=== PATIENT | female | born 1960 | race Two or more races ===

== ENCOUNTER 2016-09-16 10:37 | Inpatient (IN) | payer MEDICARE, MEDICAID ==
[~2016-09-16] VITALS: Ht 154.9 cm; Wt 107.2 kg
[2016-09-16] MEDS ORDERED: DILA100C PO (10:56)
[2016-09-16] MEDS ORDERED: TRAZ1TAB14 PO (10:56)
[2016-09-16] MEDS ORDERED: AMLO5TAB2 PO (10:56)
[2016-09-16] MEDS ORDERED: CLON0.2T PO (10:56)
[2016-09-16] MEDS ORDERED: PHEN30CA PO (10:56)
[2016-09-16] MEDS ORDERED: OMEP40CA2 PO (10:56)
[2016-09-16] MEDS ORDERED: LISI40TAB PO (10:56)
[2016-09-16] MEDS ORDERED: MORPHINE 4 MG/ML 1ML SYRINGE IV ONE ×2 (11:30→13:30)
[2016-09-16] MEDS ORDERED: VANCOMYCIN HCL 1,000 MG, VIAL MATE ADAPTER 1 EACH in D5W 250 ML IV ONE (11:30)
[2016-09-16] MEDS ORDERED: ONDANSETRON 4MG/2ML VIAL (J2405) IV ONE (11:30)
[2016-09-16] MEDS ORDERED: MELO15TA4 PO (11:43)
[2016-09-16] MEDS ORDERED: LYRI150C PO (11:43)
[2016-09-16] MEDS ORDERED: FLUTISP (11:43)
[2016-09-16] MEDS ORDERED: LEVO25TA5 PO (11:43)
[2016-09-16] MEDS ORDERED: VENL75TA2 PO (11:43)
[2016-09-16] MEDS ORDERED: CARV25TA PO (11:43)
[2016-09-16] MEDS ORDERED: CILO100T PO (11:43)
[2016-09-16 11:44] LABS: BASO % 0.1 % (0.0-1.0); EOS # 0.1 K/mm3 (0.0-0.50); EOS % 1.1 % (0.0-3.0); LARGE UNSTAINED CELL # 0.1 K/mm3 (0.0-0.4); LARGE UNSTAINED CELL % 0.8 % (0.0-4.0); LYMPH % 11.6 % (24.0-44.0); MEAN CORPUSCULAR HGB CONC 34.1 g/dl (32.0-36.5); MEAN CORPUSCULAR VOLUME 90.8 fl (80.0-96.0); MONO # 0.3 K/mm3 (0.0-0.8); NEUTROPHILS # 6.9 K/mm3 (1.8-7.7); NEUTROPHILS % 83.4 % (36.0-66.0); PLATELET COUNT, AUTOMATED 293 k/mm3 (150-450); RED CELL DISTRIBUTION WIDTH 14.8 % (11.5-14.5); WHITE BLOOD COUNT 8.3 K/mm3 (4.0-10.0)
[2016-09-16 11:59] LABS: ALBUMIN 3.3 GM/DL (3.2-5.2); ALBUMIN/GLOBULIN RATIO 0.92 (1.00-1.93); ALKALINE PHOSPHATASE 136 U/L (45-117); ALT/SGPT 23 U/L (12-78); ANION GAP 8 MEQ/L (8-16); AST/SGOT 9 U/L (15-37); BILIRUBIN,TOTAL 0.3 MG/DL (0.2-1.0); BLOOD UREA NITROGEN 19 MG/DL (7-18); CALCIUM LEVEL 9.1 MG/DL (8.5-10.1); CARBON DIOXIDE LEVEL 25 MEQ/L (21-32); CHLORIDE LEVEL 104 MEQ/L (98-107); CREATININE FOR GFR 0.72 MG/DL (0.55-1.02); GLOMERULAR FILTRATION RATE > 60.0 (>51); GLUCOSE, FASTING 167 MG/DL (70-105); POTASSIUM SERUM 3.4 MEQ/L (3.5-5.1); SODIUM LEVEL 137 MEQ/L (136-145); TOTAL PROTEIN 6.9 GM/DL (6.4-8.2)
[2016-09-16] MEDS ORDERED: diphenhydrAMINE INJ 50MG/ML VIAL (J1200) IV STA ×2 (12:02→13:08)
[2016-09-16] MEDS ORDERED: ISOVUE-370 76% 100ML VIAL (Q9967) As Ordered ONE (12:05)
[2016-09-16] MEDS ORDERED: FAMOTIDINE INJ 20MG/2ML VIAL (S0028) IVP ONE (12:15)
[2016-09-16 12:29] LABS: ERYTHROCYTE SEDIMENTATION RATE 30 mm/hr (0-30)
[2016-09-16] MEDS ORDERED: LEVO50TA45 PO (13:48)
[2016-09-16] MEDS ORDERED: EFFE75CA75 PO (13:48)
[2016-09-16] MEDS ORDERED: PROAAER10 INH (13:48)
[2016-09-16] MEDS: IPRATROPIUM 0.5MG/ALBUTEROL 2.5MG INH SOL UD 3ML (DUONEB)(J7620) NEB SCH ×2 (14:00→19:43)
--- NOTE | 2016-09-16 14:14 | REP ---
CT study of abdomen and pelvis with IV but without oral contrast: History: Panniculitis. Technique: A BB marker is placed is at the skin above the level of interest. CT contrast dose: 100 mL of Isovue 370 is administered. 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 There are median sternotomy wires. Axial CT images show that the lung bases are clear. The liver and the spleen are normal in size and homogeneous in texture. The gallbladder is unremarkable. No pancreatic abnormality is seen. No adrenal lesion is observed on either side. The kidneys enhance symmetrically are morphologically intact. Small and large intestinal bowel loops are normal in the upper abdomen. Pelvic CT images demonstrate a large area of skin thickening and subcutaneous edema in the abdominal panniculus beginning at and extending below the level of the opaque BB skin marker consistent with panniculitis/cellulitis. No abscess or mass is seen. No abdominal wall hernia is seen. Pelvic CT images show normal large and small bowel loops. There is a fundal uterine leiomyoma measuring approximately 3.1 cm. No ovarian abnormality is seen. No free fluid is noted. No abdominal wall defect is seen. No bony destructive lesion is observed. There are fairly advanced facet osteoarthritic changes in the lower lumbar spine. Impression: 1. Cellulitis picture in the abdominal panniculus consistent with panniculitis. No abscess seen. 2. 3.1 cm uterine leiomyoma. 3. No other significant abnormality. Signed by Tutu Corral MD 09/16/2016 04:33 P
[2016-09-16] MEDS ORDERED: MORPHINE 2 MG/ML 1ML SYRINGE IV PRN (14:45)
[2016-09-16] MEDS ORDERED: BISACODYL 5 MG TAB PO PRN (14:45)
[2016-09-16] MEDS ORDERED: ACETAMINOPHEN TAB 650MG DOSE (2X325MG) PO PRN (14:45)
[2016-09-16] MEDS ORDERED: ONDANSETRON 4MG/2ML VIAL (J2405) IV PRN (14:45)
[2016-09-16] MEDS ORDERED: IPRATROPIUM 0.5MG/ALBUTEROL 2.5MG INH SOL UD 3ML (DUONEB)(J7620) NEB PRN (15:00)
[2016-09-16] MEDS ORDERED: ALBUTEROL 90 MCG/ACT 8GM HFA INHALER INH PRN (15:00)
--- NOTE | 2016-09-16 15:14 | REP ---
PA and lateral chest: There are no comparisons. The lung colindres are clear. Cardiac size is borderline enlarged. There are sternotomy wires and mediastinal surgical clips. The jaqueline, mediastinum, and bony thorax are unremarkable. Impression: There are postsurgical changes. There are no acute cardiopulmonary findings. Signed by Torito Kahn MD 09/16/2016 03:05 P
[2016-09-16] MEDS: ENOXAPARIN 40 MG/0.4 ML SYRINGE (J1650) SC SCH (15:24)
[2016-09-16] MEDS: CEFTAROLINE FOSAMIL 600 MG in D5W MINI-BAG PLUS 50 ML IV SCH (15:24)
[2016-09-16] MEDS: PERCOCET 5MG/325MG TAB PO PRN ×2 (15:26→19:38)
[2016-09-16 15:30] LABS: CHOLESTEROL LEVEL 220 MG/DL (<200); TRIGLYCERIDES LEVEL 176 MG/DL (<150)
[2016-09-16] MEDS ORDERED: POTASSIUM CHLORIDE 10 MEQ SR TABLET PO ONE (16:00)
[2016-09-16] MEDS: diphenhydrAMINE INJ 50MG/ML VIAL (J1200) IV PRN (16:02)
[2016-09-16 17:15] VITALS: BP 150/90
[2016-09-16] MEDS: CILOSTAZOL 100 MG TAB (PLETAL) PO SCH (18:23)
[2016-09-16] MEDS: traZODone 50 MG TAB PO SCH (20:58)
[2016-09-16] MEDS: PHENYTOIN ER 30 MG CAP PO SCH (20:58)
[2016-09-16] MEDS: NYSTATIN 100,000 UNITS/GM TOPICAL PWD 15 GM TOP SCH (20:58)
[2016-09-16] MEDS: PHENYTOIN ER 100 MG CAP PO SCH (20:58)
[2016-09-16] MEDS: cloNIDine 0.2 MG TAB PO SCH (20:59)
[2016-09-16] MEDS: OMEPRAZOLE 20 MG CAP PO SCH (21:00)
[2016-09-16] MEDS: CARVedilol 12.5 MG TAB PO SCH (21:00)
[2016-09-16] MEDS: PREGABALIN 75 MG CAP(LYRICA) PO SCH (21:00)
[2016-09-16 22:00] VITALS: BP 158/80
--- NOTE | 2016-09-16 22:43 | ECGEPIP ---
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
[2016-09-17] MEDS: IPRATROPIUM 0.5MG/ALBUTEROL 2.5MG INH SOL UD 3ML (DUONEB)(J7620) NEB SCH ×4 (01:57→19:32)
[2016-09-17] MEDS: CEFTAROLINE FOSAMIL 600 MG in D5W MINI-BAG PLUS 50 ML IV SCH ×2 (04:04→16:49)
[2016-09-17] MEDS: PERCOCET 5MG/325MG TAB PO PRN ×4 (04:19→20:49)
[2016-09-17] MEDS: LEVOTHYROXINE 50MCG TABLET (0.05MG) PO SCH (05:40)
[2016-09-17 06:00] VITALS: BP_SYST 140; BP_SYST 158; BP_DIAS 86
[2016-09-17 06:42] LABS: BASO % 0.2 % (0.0-1.0); EOS # 0.1 K/mm3 (0.0-0.50); EOS % 2.9 % (0.0-3.0); LYMPH # 0.9 K/mm3 (1.5-4.5); LYMPH % 22.4 % (24.0-44.0); MEAN CORPUSCULAR HEMOGLOBIN 30.6 pg (27.0-33.0); MEAN CORPUSCULAR HGB CONC 33.3 g/dl (32.0-36.5); MONO # 0.2 K/mm3 (0.0-0.8); MONO % 4.6 % (0.0-5.0); NEUTROPHILS # 2.7 K/mm3 (1.8-7.7); NEUTROPHILS % 68.9 % (36.0-66.0); PLATELET COUNT, AUTOMATED 246 k/mm3 (150-450); RED CELL DISTRIBUTION WIDTH 14.9 % (11.5-14.5); WHITE BLOOD COUNT 3.9 K/mm3 (4.0-10.0)
[2016-09-17 07:03] LABS: ALBUMIN 2.8 GM/DL (3.2-5.2); ALBUMIN/GLOBULIN RATIO 0.82 (1.00-1.93); ALKALINE PHOSPHATASE 122 U/L (45-117); ALT/SGPT 21 U/L (12-78); ANION GAP 5 MEQ/L (8-16); AST/SGOT 8 U/L (15-37); BILIRUBIN,TOTAL 0.1 MG/DL (0.2-1.0); BLOOD UREA NITROGEN 16 MG/DL (7-18); CARBON DIOXIDE LEVEL 32 MEQ/L (21-32); CHLORIDE LEVEL 107 MEQ/L (98-107); CREATININE FOR GFR 0.64 MG/DL (0.55-1.02); GLOMERULAR FILTRATION RATE > 60.0 (>51); GLUCOSE, FASTING 150 MG/DL (70-105); MAGNESIUM LEVEL 1.8 MG/DL (1.8-2.4); POTASSIUM SERUM 4.5 MEQ/L (3.5-5.1); SODIUM LEVEL 144 MEQ/L (136-145); TOTAL PROTEIN 6.2 GM/DL (6.4-8.2)
[2016-09-17] MEDS: CILOSTAZOL 100 MG TAB (PLETAL) PO SCH ×2 (08:04→16:50)
[2016-09-17] MEDS: PREGABALIN 75 MG CAP(LYRICA) PO SCH ×2 (09:47→20:47)
[2016-09-17] MEDS: cloNIDine 0.2 MG TAB PO SCH ×2 (09:47→20:47)
[2016-09-17] MEDS: OMEPRAZOLE 20 MG CAP PO SCH ×2 (09:47→20:46)
[2016-09-17] MEDS: CARVedilol 12.5 MG TAB PO SCH ×2 (09:47→20:48)
[2016-09-17] MEDS: LISINOPRIL 40 MG TAB PO SCH (09:48)
[2016-09-17] MEDS: VENLAFAXINE **XR** 75MG CAPSULE PO SCH (09:48)
[2016-09-17] MEDS: amLODIPine 10 MG TAB PO SCH (09:48)
[2016-09-17] MEDS: NYSTATIN 100,000 UNITS/GM TOPICAL PWD 15 GM TOP SCH ×2 (09:48→20:48)
[2016-09-17] MEDS: ENOXAPARIN 40 MG/0.4 ML SYRINGE (J1650) SC SCH (09:48)
[2016-09-17 14:00] VITALS: BP 123/60
[2016-09-17] MEDS ORDERED: GLUCOSE 4 GM CHEW TABLET PO PRN (16:30)
[2016-09-17] MEDS ORDERED: GLUCAGON FOR INJ 1 MG VIAL (J1610) SC PRN (16:30)
[2016-09-17] MEDS ORDERED: DEXTROSE 50% 50 ML SYRINGE IV PRN (16:30)
[2016-09-17] MEDS: diphenhydrAMINE INJ 50MG/ML VIAL (J1200) IV PRN (16:50)
[2016-09-17] MEDS: HumaLOG INSULIN (NovoLOG) PER UNIT SC SCH ×2 (17:02→20:32)
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
[2016-09-17] MEDS: traZODone 50 MG TAB PO SCH (20:46)
[2016-09-17] MEDS: PHENYTOIN ER 100 MG CAP PO SCH (20:46)
[2016-09-17] MEDS: PHENYTOIN ER 30 MG CAP PO SCH (20:47)
[2016-09-17 22:00] VITALS: BP 118/68
[2016-09-18] MEDS: IPRATROPIUM 0.5MG/ALBUTEROL 2.5MG INH SOL UD 3ML (DUONEB)(J7620) NEB SCH ×4 (01:59→19:31)
[2016-09-18] MEDS: PERCOCET 5MG/325MG TAB PO PRN ×5 (02:08→22:18)
[2016-09-18] MEDS: CEFTAROLINE FOSAMIL 600 MG in D5W MINI-BAG PLUS 50 ML IV SCH ×2 (04:21→17:23)
[2016-09-18] MEDS: LEVOTHYROXINE 50MCG TABLET (0.05MG) PO SCH (05:40)
[2016-09-18] MEDS: diphenhydrAMINE INJ 50MG/ML VIAL (J1200) IV PRN ×2 (05:41→17:30)
[2016-09-18 06:00] VITALS: BP 136/68
[2016-09-18 06:16] LABS: BASO % 0.4 % (0.0-1.0); EOS # 0.1 K/mm3 (0.0-0.50); EOS % 2.4 % (0.0-3.0); LARGE UNSTAINED CELL # 0.1 K/mm3 (0.0-0.4); LARGE UNSTAINED CELL % 1.2 % (0.0-4.0); LYMPH # 1.1 K/mm3 (1.5-4.5); LYMPH % 26.3 % (24.0-44.0); MEAN CORPUSCULAR HGB CONC 33.3 g/dl (32.0-36.5); MEAN CORPUSCULAR VOLUME 93.1 fl (80.0-96.0); MONO # 0.2 K/mm3 (0.0-0.8); MONO % 4.2 % (0.0-5.0); NEUTROPHILS # 2.6 K/mm3 (1.8-7.7); NEUTROPHILS % 65.5 % (36.0-66.0); PLATELET COUNT, AUTOMATED 233 k/mm3 (150-450); RED CELL DISTRIBUTION WIDTH 14.9 % (11.5-14.5)
[2016-09-18 06:35] LABS: ALBUMIN 2.6 GM/DL (3.2-5.2); ALBUMIN/GLOBULIN RATIO 0.79 (1.00-1.93); ALKALINE PHOSPHATASE 108 U/L (45-117); ALT/SGPT 17 U/L (12-78); ANION GAP 8 MEQ/L (8-16); AST/SGOT 5 U/L (15-37); BILIRUBIN,TOTAL < 0.1 MG/DL (0.2-1.0); BLOOD UREA NITROGEN 21 MG/DL (7-18); CALCIUM LEVEL 8.8 MG/DL (8.5-10.1); CARBON DIOXIDE LEVEL 30 MEQ/L (21-32); CHLORIDE LEVEL 112 MEQ/L (98-107); CREATININE FOR GFR 0.75 MG/DL (0.55-1.02); GLOMERULAR FILTRATION RATE > 60.0 (>51); GLUCOSE, FASTING 139 MG/DL (70-105); MAGNESIUM LEVEL 1.6 MG/DL (1.8-2.4); POTASSIUM SERUM 4.5 MEQ/L (3.5-5.1); SODIUM LEVEL 150 MEQ/L (136-145); TOTAL PROTEIN 5.9 GM/DL (6.4-8.2)
[2016-09-18] MEDS: CILOSTAZOL 100 MG TAB (PLETAL) PO SCH ×2 (07:57→17:23)
[2016-09-18] MEDS: ENOXAPARIN 40 MG/0.4 ML SYRINGE (J1650) SC SCH (07:57)
[2016-09-18] MEDS: OMEPRAZOLE 20 MG CAP PO SCH ×2 (07:57→21:25)
[2016-09-18] MEDS: LISINOPRIL 40 MG TAB PO SCH (07:57)
[2016-09-18] MEDS: VENLAFAXINE **XR** 75MG CAPSULE PO SCH (07:58)
[2016-09-18] MEDS: PREGABALIN 75 MG CAP(LYRICA) PO SCH ×2 (07:58→21:25)
[2016-09-18] MEDS: cloNIDine 0.2 MG TAB PO SCH ×2 (07:58→21:26)
[2016-09-18] MEDS: amLODIPine 10 MG TAB PO SCH (07:58)
[2016-09-18] MEDS: HumaLOG INSULIN (NovoLOG) PER UNIT SC SCH ×4 (07:59→21:26)
[2016-09-18] MEDS: CARVedilol 12.5 MG TAB PO SCH ×2 (07:59→21:26)
[2016-09-18] MEDS: NYSTATIN 100,000 UNITS/GM TOPICAL PWD 15 GM TOP SCH ×2 (08:00→21:26)
[2016-09-18 14:00] VITALS: BP 127/59
[2016-09-18] MEDS ORDERED: MAGNESIUM OXIDE 400 MG TAB (MAG-OX) PO ONE (15:00)
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
[2016-09-18 15:46] LABS: T UPTAKE 39 % (30-39); THYROXINE (T4) 4.3 UG/DL (4.5-12.0)
[2016-09-18 17:53] LABS: OSMOLALITY URINE 718 MOSM/KG (500-800)
[2016-09-18] MEDS: traZODone 50 MG TAB PO SCH (21:24)
[2016-09-18] MEDS: PHENYTOIN ER 30 MG CAP PO SCH (21:24)
[2016-09-18] MEDS: PHENYTOIN ER 100 MG CAP PO SCH (21:25)
[2016-09-18 22:00] VITALS: BP 127/68
[2016-09-19] MEDS: IPRATROPIUM 0.5MG/ALBUTEROL 2.5MG INH SOL UD 3ML (DUONEB)(J7620) NEB SCH ×3 (01:24→13:37)
[2016-09-19] MEDS: PERCOCET 5MG/325MG TAB PO PRN ×3 (02:23→13:01)
[2016-09-19] MEDS: CEFTAROLINE FOSAMIL 600 MG in D5W MINI-BAG PLUS 50 ML IV SCH (04:14)
[2016-09-19] MEDS: LEVOTHYROXINE 50MCG TABLET (0.05MG) PO SCH (05:57)
[2016-09-19] MEDS: diphenhydrAMINE INJ 50MG/ML VIAL (J1200) IV PRN (05:57)
[2016-09-19 06:00] VITALS: BP 131/77
[2016-09-19 06:14] LABS: BASO % 0.3 % (0.0-1.0); EOS # 0.1 K/mm3 (0.0-0.50); EOS % 3.4 % (0.0-3.0); LARGE UNSTAINED CELL # 0.1 K/mm3 (0.0-0.4); LARGE UNSTAINED CELL % 1.5 % (0.0-4.0); LYMPH # 1.1 K/mm3 (1.5-4.5); LYMPH % 31.9 % (24.0-44.0); MEAN CORPUSCULAR HEMOGLOBIN 31.7 pg (27.0-33.0); MEAN CORPUSCULAR HGB CONC 34.2 g/dl (32.0-36.5); MEAN CORPUSCULAR VOLUME 92.8 fl (80.0-96.0); MONO # 0.2 K/mm3 (0.0-0.8); MONO % 4.5 % (0.0-5.0); NEUTROPHILS # 1.9 K/mm3 (1.8-7.7); NEUTROPHILS % 58.4 % (36.0-66.0); PLATELET COUNT, AUTOMATED 256 k/mm3 (150-450); WHITE BLOOD COUNT 3.3 K/mm3 (4.0-10.0)
[2016-09-19 06:29] LABS: ALBUMIN 2.5 GM/DL (3.2-5.2); ALBUMIN/GLOBULIN RATIO 0.89 (1.00-1.93); ALKALINE PHOSPHATASE 103 U/L (45-117); ALT/SGPT 16 U/L (12-78); ANION GAP 5 MEQ/L (8-16); AST/SGOT 9 U/L (15-37); BILIRUBIN,TOTAL 0.1 MG/DL (0.2-1.0); BLOOD UREA NITROGEN 17 MG/DL (7-18); CALCIUM LEVEL 8.6 MG/DL (8.5-10.1); CARBON DIOXIDE LEVEL 28 MEQ/L (21-32); CHLORIDE LEVEL 105 MEQ/L (98-107); GLOMERULAR FILTRATION RATE > 60.0 (>51); GLUCOSE, FASTING 118 MG/DL (70-105); MAGNESIUM LEVEL 1.7 MG/DL (1.8-2.4); POTASSIUM SERUM 4.1 MEQ/L (3.5-5.1); SODIUM LEVEL 138 MEQ/L (136-145); TOTAL PROTEIN 5.3 GM/DL (6.4-8.2)
--- NOTE | 2016-09-19 08:26 | ECHO ---
DATE OF PROCEDURE: 09/17/2016 REFERRING PHYSICIAN: Melanie Chavira MD PATIENT LOCATION: Room 4216 REASON FOR ECHOCARDIOGRAM: Congestive heart failure (CHF). 2D MEASUREMENTS: IVS: 1.1 cm LV: 3.9 cm LVPW: 1.1 cm Aortic root: 3.2 LA: 4.2 cm DOPPLER MEASUREMENTS: Peak velocity across the aortic valve: 1.5 m/s Mitral E: 0.92, Mitral A: 0.75, with a ratio greater than 1.0 Maximum tricuspid valve velocity: 2.7 m/s 2D COMMENTS: 1. Normal left ventricular size, wall thickness and a normal global left ventricular systolic function. 2. Mildly enlarged left atrium. Normal right atrium and right ventricle. 3. The atrial septum appeared to be normal without evidence of defect or shunt. 4. Normal aortic root. 5. No pericardial effusion seen. 6. Mildly calcified aortic valve. Leaflet excursion appeared to be normal. Normal mitral valve, tricuspid valve and pulmonic valve. The proximal pulmonary artery branches also appear to be normal. 7. The inferior vena cava was not well visualized. DOPPLER: It detects mild aortic regurgitation, trace mitral regurgitation, and mild tricuspid regurgitation. The calculated pulmonary artery systolic pressure varied between 30 to 40. Abnormal relaxation pattern was noted across the mitral valve annulus, consistent with a pseudo-normal pattern. Left ventricular end-diastolic pressure might be elevated. IMPRESSION: 1. Normal global left ventricular systolic function with regional wall motion abnormalities consistent with underlying coronary artery disease. There are features of left ventricle and diastolic function, grade II. 2. Aortic valve sclerosis with mild aortic regurgitation but no aortic stenosis. 3. Trace mitral regurgitation noted. 4. Mild tricuspid regurgitation with mild pulmonary hypertension. [facility]
[2016-09-19] MEDS: NYSTATIN 100,000 UNITS/GM TOPICAL PWD 15 GM TOP SCH (08:52)
[2016-09-19] MEDS: HumaLOG INSULIN (NovoLOG) PER UNIT SC SCH ×2 (08:52→13:02)
[2016-09-19] MEDS: ENOXAPARIN 40 MG/0.4 ML SYRINGE (J1650) SC SCH (08:53)
[2016-09-19] MEDS: VENLAFAXINE **XR** 75MG CAPSULE PO SCH (08:53)
[2016-09-19] MEDS: LISINOPRIL 40 MG TAB PO SCH (08:53)
[2016-09-19 08:54] VITALS: BP 155/73
[2016-09-19] MEDS: CARVedilol 12.5 MG TAB PO SCH (08:54)
[2016-09-19] MEDS: PREGABALIN 75 MG CAP(LYRICA) PO SCH (08:54)
[2016-09-19] MEDS: cloNIDine 0.2 MG TAB PO SCH (08:54)
[2016-09-19] MEDS: OMEPRAZOLE 20 MG CAP PO SCH (08:55)
[2016-09-19] MEDS: CILOSTAZOL 100 MG TAB (PLETAL) PO SCH (08:55)
[2016-09-19] MEDS: amLODIPine 10 MG TAB PO SCH (08:55)
[2016-09-19] MEDS ORDERED: NYST10PW TOP (10:14)
[2016-09-19] MEDS ORDERED: DOXY-278 PO (10:14)
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
== END 2016-09-19 14:17 | disposition home or self-care (01) | DRG 603 ==
LOC: M ED 10:37 → M ED INP 15:05 → M MSPAV 16:50
PROVIDERS: ADMIT Internal Medicine; ATTEND Internal Medicine
DX: L03.311 Cellulitis of abdominal wall (principal); Z68.41 Body mass index [BMI] 40.0-44.9, adult; J96.11 Chronic respiratory failure with hypoxia; I50.9 Heart failure, unspecified; I11.0 Hypertensive heart disease with heart failure; J44.9 Chronic obstructive pulmonary disease, unspecified; I25.10 Atherosclerotic heart disease of native coronary artery without angina pectoris; G47.00 Insomnia, unspecified; R73.9 Hyperglycemia, unspecified; F32.9 Major depressive disorder, single episode, unspecified; K21.9 Gastro-esophageal reflux disease without esophagitis; E03.9 Hypothyroidism, unspecified; G57.93 Unspecified mononeuropathy of bilateral lower limbs; G40.409 Other generalized epilepsy and epileptic syndromes, not intractable, without status epilepticus; F17.210 Nicotine dependence, cigarettes, uncomplicated; E66.01 Morbid (severe) obesity due to excess calories; Z99.81 Dependence on supplemental oxygen; Z88.1 Allergy status to other antibiotic agents; Z88.6 Allergy status to analgesic agent; Z88.0 Allergy status to penicillin; Z88.2 Allergy status to sulfonamides; Z88.8 Allergy status to other drugs, medicaments and biological substances; Z91.018 Allergy to other foods; Z79.02 Long term (current) use of antithrombotics/antiplatelets; Z86.73 Personal history of transient ischemic attack (TIA), and cerebral infarction without residual deficits; Z95.5 Presence of coronary angioplasty implant and graft

== ENCOUNTER 2016-09-29 22:28 | Emergency (ER) | payer MEDICARE, MEDICAID ==
[~2016-09-29] VITALS: Ht 154.9 cm; Wt 107.5 kg
[~2016-09-29 22:28] MED LIST: AMLO5TAB2 PO; CARV25TA PO; CILO100T PO; CLON0.2T PO; DILA100C PO; DOXY-278 PO; EFFE75CA75 PO; FLUTISP; LEVO25TA5 PO; LEVO50TA45 PO; LISI40TAB PO; LYRI150C PO; MELO15TA4 PO; NYST10PW TOP; OMEP40CA2 PO; PHEN30CA PO; PROAAER10 INH; TRAZ1TAB14 PO; VENL75TA2 PO
[2016-09-29] MEDS ORDERED: FAMO20TA PO (22:53)
[2016-09-29] MEDS ORDERED: METO50TA7 PO (22:56)
[2016-09-29 22:58] VITALS: BP 203/98
[2016-09-29] MEDS ORDERED: cloNIDine 0.2 MG TAB PO ONE (23:00)
[2016-09-29 23:20] LABS: BASO % 0.6 % (0.0-1.0); EOS # 0.1 K/mm3 (0.0-0.50); EOS % 1.1 % (0.0-3.0); LARGE UNSTAINED CELL # 0.1 K/mm3 (0.0-0.4); LARGE UNSTAINED CELL % 0.9 % (0.0-4.0); LYMPH # 1.3 K/mm3 (1.5-4.5); LYMPH % 17.1 % (24.0-44.0); MEAN CORPUSCULAR HEMOGLOBIN 30.3 pg (27.0-33.0); MEAN CORPUSCULAR HGB CONC 32.9 g/dl (32.0-36.5); MONO # 0.3 K/mm3 (0.0-0.8); MONO % 3.5 % (0.0-5.0); NEUTROPHILS # 5.8 K/mm3 (1.8-7.7); NEUTROPHILS % 76.8 % (36.0-66.0); PLATELET COUNT, AUTOMATED 323 k/mm3 (150-450); RED CELL DISTRIBUTION WIDTH 15.2 % (11.5-14.5); WHITE BLOOD COUNT 7.6 K/mm3 (4.0-10.0)
[2016-09-29 23:28] LABS: INR 0.99
--- NOTE | 2016-09-29 23:36 | ECGEPIP ---
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
[2016-09-29 23:41] LABS: ANION GAP 8 MEQ/L (8-16); BLOOD UREA NITROGEN 15 MG/DL (7-18); CALCIUM LEVEL 8.7 MG/DL (8.5-10.1); CARBON DIOXIDE LEVEL 28 MEQ/L (21-32); CHLORIDE LEVEL 110 MEQ/L (98-107); CREATININE FOR GFR 0.96 MG/DL (0.55-1.02); GLOMERULAR FILTRATION RATE > 60.0 (>51); GLUCOSE, FASTING 214 MG/DL (70-105); POTASSIUM SERUM 3.5 MEQ/L (3.5-5.1); SODIUM LEVEL 146 MEQ/L (136-145)
[2016-09-29] MEDS ORDERED: PHENYTOIN ER 100 MG CAP PO ONE (23:45)
[2016-09-29] MEDS ORDERED: NS 500 ML IV ONE (23:45)
[2016-09-30] MEDS ORDERED: ACETAMINOPHEN 325 MG TAB PO ONE
[2016-09-30 00:55] VITALS: BP 178/92
--- NOTE | 2016-09-30 08:10 | REP ---
Clinical: Chest pain . Comparison: 09/16/2016 . Findings: The mediastinum and cardiac silhouette are stable and within normal limits for portable technique. The patient is status post sternotomy and CABG. The lung colindres are clear without acute consolidation, effusion, or pneumothorax. Skeletal structures are intact. Impression: No acute cardiopulmonary process appreciated. Signed by Ismael Zavala MD 09/30/2016 02:15 A
[2016-10-01] MEDS ORDERED: AMLO10TA2 PO (15:14)
[2016-10-01] MEDS ORDERED: NYST1POW9 TOP (15:14)
== END 2016-09-30 01:43 | disposition home or self-care (01) ==
LOC: M ED 22:28 → EDBD 22:28 → M ED 09-30 01:43
DX: G40.909 Epilepsy, unspecified, not intractable, without status epilepticus (principal); I10 Essential (primary) hypertension; J44.9 Chronic obstructive pulmonary disease, unspecified; I25.10 Atherosclerotic heart disease of native coronary artery without angina pectoris; E03.9 Hypothyroidism, unspecified; I25.2 Old myocardial infarction; E78.00 Pure hypercholesterolemia, unspecified; K21.9 Gastro-esophageal reflux disease without esophagitis; Z72.0 Tobacco use; Z51.81 Encounter for therapeutic drug level monitoring

== ENCOUNTER 2016-10-01 10:48 | Observation (INO) | payer MEDICARE, OTHER ==
[~2016-10-01] VITALS: Ht 154.9 cm; Wt 107.6 kg
[~2016-10-01 10:48] MED LIST changes: +FAMO20TA PO; +METO50TA7 PO
[2016-10-01] MEDS ORDERED: LABETALOL HCL 100 MG/20 ML VIAL IV STA (11:24)
[2016-10-01] MEDS ORDERED: LABETALOL 100 MG TAB PO ONE (11:30)
[2016-10-01 12:34] LABS: BASO % 0.3 % (0.0-1.0); EOS # 0.1 K/mm3 (0.0-0.50); EOS % 1.4 % (0.0-3.0); LARGE UNSTAINED CELL # 0.1 K/mm3 (0.0-0.4); LYMPH # 1.2 K/mm3 (1.5-4.5); LYMPH % 19.5 % (24.0-44.0); MEAN CORPUSCULAR HEMOGLOBIN 30.9 pg (27.0-33.0); MEAN CORPUSCULAR HGB CONC 33.8 g/dl (32.0-36.5); MEAN CORPUSCULAR VOLUME 91.4 fl (80.0-96.0); MONO # 0.3 K/mm3 (0.0-0.8); MONO % 4.4 % (0.0-5.0); NEUTROPHILS # 4.2 K/mm3 (1.8-7.7); NEUTROPHILS % 73.4 % (36.0-66.0); PLATELET COUNT, AUTOMATED 280 k/mm3 (150-450); RED CELL DISTRIBUTION WIDTH 15.4 % (11.5-14.5); WHITE BLOOD COUNT 5.7 K/mm3 (4.0-10.0)
[2016-10-01] MEDS: LABETALOL HCL 100 MG/20 ML VIAL IV PRN ×12 (12:53→16:09)
[2016-10-01 13:22] LABS: ALBUMIN 3.1 GM/DL (3.2-5.2); ALBUMIN/GLOBULIN RATIO 0.89 (1.00-1.93); ALKALINE PHOSPHATASE 134 U/L (45-117); ALT/SGPT 25 U/L (12-78); ANION GAP 8 MEQ/L (8-16); AST/SGOT 14 U/L (15-37); BILIRUBIN,DIRECT < 0.1 MG/DL (0.0-0.2); BILIRUBIN,TOTAL 0.3 MG/DL (0.2-1.0); BLOOD UREA NITROGEN 14 MG/DL (7-18); CALCIUM LEVEL 8.9 MG/DL (8.5-10.1); CARBON DIOXIDE LEVEL 28 MEQ/L (21-32); CHLORIDE LEVEL 108 MEQ/L (98-107); CREATININE FOR GFR 0.67 MG/DL (0.55-1.02); GLOMERULAR FILTRATION RATE > 60.0 (>51); GLUCOSE, FASTING 102 MG/DL (70-105); SODIUM LEVEL 144 MEQ/L (136-145); TOTAL PROTEIN 6.6 GM/DL (6.4-8.2)
[2016-10-01] MEDS ORDERED: ACETAMINOPHEN TAB 650MG DOSE (2X325MG) PO ONE (13:30)
[2016-10-01] MEDS ORDERED: AMLO10TA2 PO (15:14)
[2016-10-01] MEDS ORDERED: NYST1POW9 TOP (15:14)
[2016-10-01] MEDS ORDERED: GLUCAGON FOR INJ 1 MG VIAL (J1610) SC PRN (16:30)
[2016-10-01] MEDS ORDERED: GLUCOSE 4 GM CHEW TABLET PO PRN (16:30)
[2016-10-01] MEDS ORDERED: DEXTROSE 50% 50 ML SYRINGE IV PRN (16:30)
[2016-10-01] MEDS: HumaLOG INSULIN (NovoLOG) PER UNIT SC SCH ×2 (17:13→21:00)
[2016-10-01] MEDS ORDERED: IPRATROPIUM 0.5MG/ALBUTEROL 2.5MG INH SOL UD 3ML (DUONEB)(J7620) NEB PRN (17:15)
[2016-10-01] MEDS ORDERED: LORazepam 2 MG/ML VIAL (J2060) IV PRN (17:15)
[2016-10-01] MEDS ORDERED: FLUTICASONE PROP 0.05% NASAL SPRAY 16 GM (FLONASE) PRN (17:15)
[2016-10-01] MEDS ORDERED: ALBUTEROL 90 MCG/ACT 8GM HFA INHALER INH PRN (17:15)
[2016-10-01] MEDS: DOXYCYCLINE HYCLATE 100 MG TAB PO SCH (17:20)
[2016-10-01] MEDS: MORPHINE 2 MG/ML 1ML SYRINGE IV PRN ×2 (17:20→23:58)
[2016-10-01] MEDS: hydrALAZINE INJ 20 MG/ML VIAL IV SCH ×2 (17:21→23:49)
[2016-10-01] MEDS ORDERED: ONDANSETRON 4MG/2ML VIAL (J2405) IV PRN (17:30)
[2016-10-01] MEDS ORDERED: ACETAMINOPHEN TAB 650MG DOSE (2X325MG) PO PRN (17:30)
[2016-10-01] MEDS ORDERED: FUROSEMIDE 40 MG/4 ML VIAL (J1940) IV ONE (18:00)
[2016-10-01 18:40] VITALS: BP 147/79
[2016-10-01 19:16] LABS: MAGNESIUM LEVEL 1.6 MG/DL (1.8-2.4); PHOSPHORUS LEVEL 3.1 MG/DL (2.5-4.9)
[2016-10-01 20:00] VITALS: BP 148/90; PULSE 95
[2016-10-01] MEDS ORDERED: MAG SULF 1GM/100ML (MAG RUN) 1 GM in APPROPRIATE DILUENT 1 EA IV ONE (20:30)
[2016-10-01] MEDS: LACTOBACILLUS ACIDOPHILUS CAP (BACID) PO SCH (21:00)
[2016-10-01] MEDS: VENLAFAXINE **XR** 75MG CAPSULE PO SCH (21:00)
[2016-10-01] MEDS ORDERED: METOPROLOL TART 50 MG TAB PO SCH (21:00)
[2016-10-01] MEDS: LIDOCAINE 5% OINT 30 GM TOP SCH (21:48)
[2016-10-01] MEDS: NYSTATIN OINTMENT 15 GM TOP SCH (21:51)
[2016-10-01] MEDS: NYSTATIN 100,000 UNITS/GM TOPICAL PWD 15 GM TOP SCH (21:52)
[2016-10-01] MEDS: PHENYTOIN ER 30 MG CAP PO SCH (21:52)
[2016-10-01] MEDS: CILOSTAZOL 100 MG TAB (PLETAL) PO SCH (21:52)
[2016-10-01] MEDS: HEPARIN SOD (PORCINE) 5000 UNITS/ML VIAL SC SCH (22:03)
[2016-10-01] MEDS: PHENYTOIN ER 100 MG CAP PO SCH (22:04)
[2016-10-01] MEDS: traZODone 50 MG TAB PO SCH (22:05)
[2016-10-01] MEDS: SENOKOT S TAB PO SCH (22:05)
[2016-10-01] MEDS: cloNIDine 0.2 MG TAB PO SCH (22:05)
[2016-10-01] MEDS: PREGABALIN 75 MG CAP(LYRICA) PO SCH (22:06)
[2016-10-01] MEDS: CARVedilol 12.5 MG TAB PO SCH (22:06)
[2016-10-01] MEDS: OMEPRAZOLE 20 MG CAP PO SCH (22:07)
[2016-10-01] MEDS: FAMOTIDINE 20 MG TAB PO SCH (22:07)
[2016-10-01 23:30] VITALS: BP 121/69
[2016-10-02 03:21] LABS: BASO % 0.3 % (0.0-1.0); EOS # 0.1 K/mm3 (0.0-0.50); LARGE UNSTAINED CELL # 0.1 K/mm3 (0.0-0.4); LARGE UNSTAINED CELL % 0.9 % (0.0-4.0); LYMPH % 12.5 % (24.0-44.0); MEAN CORPUSCULAR HEMOGLOBIN 30.8 pg (27.0-33.0); MEAN CORPUSCULAR HGB CONC 33.3 g/dl (32.0-36.5); MEAN CORPUSCULAR VOLUME 92.7 fl (80.0-96.0); MONO # 0.3 K/mm3 (0.0-0.8); MONO % 3.9 % (0.0-5.0); NEUTROPHILS # 6.2 K/mm3 (1.8-7.7); NEUTROPHILS % 81.4 % (36.0-66.0); PLATELET COUNT, AUTOMATED 257 k/mm3 (150-450); RED CELL DISTRIBUTION WIDTH 15.2 % (11.5-14.5); WHITE BLOOD COUNT 7.6 K/mm3 (4.0-10.0)
[2016-10-02 03:37] LABS: ANION GAP 7 MEQ/L (8-16); BLOOD UREA NITROGEN 26 MG/DL (7-18); CALCIUM LEVEL 8.7 MG/DL (8.5-10.1); CARBON DIOXIDE LEVEL 29 MEQ/L (21-32); CHLORIDE LEVEL 105 MEQ/L (98-107); CREATININE FOR GFR 0.72 MG/DL (0.55-1.02); GLOMERULAR FILTRATION RATE > 60.0 (>51); GLUCOSE, FASTING 161 MG/DL (70-105); POTASSIUM SERUM 4.2 MEQ/L (3.5-5.1); SODIUM LEVEL 141 MEQ/L (136-145)
[2016-10-02 04:45] VITALS: BP 165/87
[2016-10-02] MEDS: HEPARIN SOD (PORCINE) 5000 UNITS/ML VIAL SC SCH ×3 (06:04→22:19)
[2016-10-02] MEDS: LEVOTHYROXINE 50MCG TABLET (0.05MG) PO SCH (06:04)
[2016-10-02] MEDS: hydrALAZINE INJ 20 MG/ML VIAL IV SCH ×3 (06:05→17:23)
[2016-10-02] MEDS: MORPHINE 2 MG/ML 1ML SYRINGE IV PRN ×4 (06:07→19:00)
[2016-10-02] MEDS: HumaLOG INSULIN (NovoLOG) PER UNIT SC SCH ×4 (07:30→21:00)
[2016-10-02 07:40] LABS: MAGNESIUM LEVEL 2.1 MG/DL (1.8-2.4)
--- NOTE | 2016-10-02 07:57 | ECGEPIP ---
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
[2016-10-02 08:00] VITALS: BP 138/100
[2016-10-02] MEDS ORDERED: MELOXICAM (MOBIC) 7.5 MG TAB PO SCH (09:00)
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
[2016-10-02] MEDS: PREGABALIN 75 MG CAP(LYRICA) PO SCH ×2 (09:29→22:16)
[2016-10-02] MEDS: LACTOBACILLUS ACIDOPHILUS CAP (BACID) PO SCH ×2 (09:29→21:00)
[2016-10-02] MEDS: CILOSTAZOL 100 MG TAB (PLETAL) PO SCH ×2 (09:29→17:21)
[2016-10-02] MEDS: CARVedilol 12.5 MG TAB PO SCH ×2 (09:29→22:13)
[2016-10-02] MEDS: amLODIPine 10 MG TAB PO SCH (09:30)
[2016-10-02] MEDS: DOXYCYCLINE HYCLATE 100 MG TAB PO SCH ×2 (09:30→22:17)
[2016-10-02] MEDS: SENOKOT S TAB PO SCH ×2 (09:30→21:00)
[2016-10-02] MEDS: FAMOTIDINE 20 MG TAB PO SCH ×2 (09:30→22:17)
[2016-10-02] MEDS: cloNIDine 0.2 MG TAB PO SCH ×2 (09:30→22:13)
[2016-10-02] MEDS: OMEPRAZOLE 20 MG CAP PO SCH ×2 (09:30→22:17)
[2016-10-02] MEDS: LISINOPRIL 40 MG TAB PO SCH (09:30)
[2016-10-02] MEDS: NYSTATIN OINTMENT 15 GM TOP SCH ×2 (09:31→22:18)
[2016-10-02] MEDS: LIDOCAINE 5% OINT 30 GM TOP SCH (09:32)
[2016-10-02] MEDS: NYSTATIN 100,000 UNITS/GM TOPICAL PWD 15 GM TOP SCH ×2 (09:32→22:19)
[2016-10-02 12:00] VITALS: BP 117/66
--- NOTE | 2016-10-02 15:04 | IPNPDOC ---
Date Seen The patient was seen on 10/02/16. Progress Note Hospitalist Progress Note Subjective: Patient states that she is still having chest pain. She also states that yesterday she fell down an entire flight of stairs secondary to the pain. She states that she hit her head and now has some pain in her head, however she does not think that she passed out. She states that she was a little bit dizzy when this happened. Objective: Physical Exam: Vitals: Vital Sign - Last 24 Hours 10/01/16 10/01/16 10/01/16 10/01/16 15:02 15:04 15:12 15:22 Pulse 94 93 90 90 B/P (MAP) 227/97 (140) 227/97 186/77 (113) 185/81 (115) 10/01/16 10/01/16 10/01/16 10/01/16 15:32 15:34 15:43 16:09 Pulse 92 93 94 94 B/P (MAP) 186/98 (127) 186/98 171/92 (118) 181/92 10/01/16 10/01/16 10/01/16 10/01/16 16:26 17:20 17:21 17:41 Pulse 92 90 Resp 18 B/P (MAP) 181/105 (130) 181/105 169/104 (125) Pulse Ox 95 10/01/16 10/01/16 10/01/16 10/01/16 18:40 20:00 20:00 20:00 Temp 97.8 98.6 Pulse 100 97 95 Resp 22 22 B/P (MAP) 147/79 (101) 148/90 (109) Pulse Ox 97 98 O2 Delivery Room Air Room Air Room Air 10/01/16 10/01/16 10/01/16 10/01/16 20:00 22:05 23:30 23:49 Temp 97.7 Pulse 92 Resp 18 B/P (MAP) 148/90 121/69 (86) 121/69 Pulse Ox 96 93 O2 Delivery Room Air Room Air 10/01/16 10/02/16 10/02/16 10/02/16 23:58 00:00 00:00 04:00 Temp 97.7 Pulse 92 Resp 18 B/P (MAP) 121/69 Pulse Ox 93 96 O2 Delivery Room Air Nasal Cannula Nasal Cannula Nasal Cannula O2 Flow Rate 2.0 2.0 2.0 10/02/16 10/02/16 10/02/16 10/02/16 04:45 06:05 06:07 08:00 Temp 97.8 Pulse 91 Resp 18 18 B/P (MAP) 165/87 (113) 165/87 Pulse Ox 95 96 O2 Delivery Room Air Nasal Cannula Nasal Cannula O2 Flow Rate 2.0 2.0 10/02/16 10/02/16 10/02/16 10/02/16 08:00 09:29 11:59 12:00 Temp 97.4 97.5 Pulse 98 98 73 Resp 16 18 B/P (MAP) 138/100 (113) 148/70 108/58 117/66 (83) Pulse Ox 94 96 O2 Delivery Room Air Room Air 10/02/16 10/02/16 12:01 12:11 Resp 17 19 O2 Delivery Nasal Cannula Nasal Cannula O2 Flow Rate 2.0 2.0 General: Awake, alert, no acute distress HEENT: Normocephalic, atraumatic, moist mucous membranes CV: Regular rate and rhythm, no murmurs rubs or gallops Lungs: Clear to auscultation bilaterally Abd: Soft, nontender, nondistended Extremities: No edema Neuro: Alert and oriented 3, normal speech, patient's right side is weak compared to her left side, however, this is chronic in nature, as is her right facial droop Psych: Normal Mood and affect Labs and Imaging: Laboratory Tests 10/02/16 02:40 Red Blood Count 3.72 L, Mean Corpuscular Volume 92.7, Mean Corpuscular Hemoglobin 30.8, Mean Corpuscular Hemoglobin Concent 33.3, Red Cell Distribution Width 15.2 H, Neutrophils (%) (Auto) 81.4 H, Lymphocytes (%) (Auto ) 12.5 L, Monocytes (%) (Auto) 3.9, Eosinophils (%) (Auto) 1.0, Basophils (%) ( Auto) 0.3, Neutrophils # (Auto) 6.2, Lymphocytes # (Auto) 1.0 L, Monocytes # ( Auto) 0.3, Eosinophils # (Auto) 0.1, Basophils # (Auto) 0.0, Calcium Level 8.7 Assessment and Plan: 56-year-old female with CAD status post CABG and PCI, chronic diastolic CHF, hypertension, seizure disorder, hypothyroidism, diabetes mellitus type 2, COPD, HANANE, GERD, peripheral neuropathy, migraines, depression, uterine leiomyoma, history of multiple CVAs, recent cellulitis of the abdomen presented to the emergency department with chest pain and accelerated hypertension. She is just now reporting that in addition to the chest pain, she fell down a flight of stairs yesterday and hit her head because the pain was so bad. She does not think she lost consciousness. 1. Chest pain: The patient's troponins have been normal, an EKG as well as a repeat EKG shows no evidence of acute infarct or ischemia. This does not appear to be an episode of ACS. She is, however, new to the area and does not have a building maintenance technician. She would benefit from being set up for cardiology follow-up at discharge. Continue pain management. 2. Fall down stairs: Since the patient reports hitting her head, we will check a CT of her head. She does not think that she passed out. However, she does state that she was a little dizzy. She had an echocardiogram only 2 weeks ago that showed grade 2 diastolic dysfunction, as well as mild tricuspid regurg, trace mitral regurg, and mild aortic regurg. I do not think it's necessary to repeat the echocardiogram at such a short interval. However, we will continue to monitor her on telemetry to rule out any arrhythmias. 3. CAD status post CABG and PCI: The patient is evidently allergic to aspirin, but at home she takes Pletal, which we will continue. She is not on a statin at home. I do recommend that both of these be addressed by her PCP. She is on a beta alec which we'll continue. 4. Accelerated hypertension: There is some question about the patient's compliance. We have resumed her home Norvasc, beta alec, clonidine, and NELIA inhibitor. Her blood pressure is now much improved. We'll continue to monitor and make further adjustments if necessary tomorrow. 5. Chronic diastolic CHF: The patient currently appears compensated. Her BNP is within normal limits. We will continue her beta alec and NELIA inhibitor. 6. Seizure disorder: Continue home Dilantin. 7. Hypothyroidism: Continue home Synthroid. 8. Diabetes mellitus type 2: Patient is not on any medications at home. This was just diagnosed 2 weeks ago with an A1c of 6.5. I discussed diet modification or the option of metformin with her, she said she would like to try metformin when she goes home. I have also stressed to her that it is still important to change her diet and avoid carbs and other sugars. She expresses understanding of this. We will use sliding scale insulin while the patient is in house, and then plan to start metformin at discharge. 9. COPD: Continue DuoNeb's and Flonase. 10. HANANE: The patient states that she was told to wear 2 L of oxygen at night, but is not on CPAP. When she sees her new PCP, she will likely need to be reevaluated with a sleep study. 11. GERD: Continue home PPI and H2 alec. 12. Peripheral neuropathy: Continue home Lyrica. 13. Depression: Continue home Effexor and trazodone. 14. History of multiple CVAs with resultant right-sided weaknesses: As mentioned above, the patient is evidently allergic to aspirin and is not prescribed a statin at home. We will go ahead and start a statin at this time, she has multiple risk factors which would be more to statin. We will also improved blood pressure control. 15. Recent cellulitis of the abdominal wall: The patient evidently never finished the nystatin and doxycycline treatment she was discharged on recently. We have resumed these. DVT prophylaxis: Heparin Dispo: anticipate discharge tomorrow, if chest pain is improved, CT of the head is unremarkable and patient does not demonstrate any arrhythmias on telemetry; the patient has an appointment arranged with Dr. Templeton on October 05 as a new patient; at that time, he will need to address potentially repeating her sleep study/getting her CPAP, getting her on aspirin or Plavix, and continuing the metformin and statin were started here; she will also need to be referred to a building maintenance technician VS, I&O, [facility] Vital Signs/I&O Vital Signs Date Time Temp Pulse Resp B/P (MAP) Pulse Ox O2 Delivery O2 Flow Rate FiO2 10/02/16 12:11 19 Nasal Cannula 2.0 10/02/16 12:00 97.5 73 117/66 (83) 96 I&O- Last 24 Hours up to 6 AM 10/02/16 06:00 Intake Total 400 ml Output Total 1400 ml Balance -1000 ml Laboratory Data 24H LABS Laboratory Tests 2 10/01/16 16:56: Bedside Glucose (Misc Panel) 241H 10/01/16 20:52: Total Creatine Kinase 39, Creatine Kinase MB 1.1, Creatine Kinase MB Relative Index 2.82, Troponin I < 0.02 10/01/16 21:36: Bedside Glucose (Misc Panel) 97 10/02/16 02:40: Total Creatine Kinase 35, Creatine Kinase MB 1.0, Creatine Kinase MB Relative Index 2.85, Troponin I < 0.02, White Blood Count 7.6, Red Blood Count 3.72L, Hemoglobin 11.5L, Hematocrit 34.5L, Mean Corpuscular Volume 92.7, Mean Corpuscular Hemoglobin 30.8, Mean Corpuscular Hemoglobin Concent 33.3, Red Cell Distribution Width 15.2H, Platelet Count 257, Neutrophils (%) (Auto) 81.4H, Lymphocytes (%) (Auto) 12.5L, Monocytes (%) (Auto) 3.9, Eosinophils (%) (Auto) 1.0, Basophils (%) (Auto) 0.3, Neutrophils # (Auto) 6.2, Lymphocytes # (Auto) 1.0L, Monocytes # (Auto) 0.3, Eosinophils # (Auto) 0.1, Basophils # (Auto) 0.0, Large Unclassified Cells % 0.9, Large Unclassified Cells # 0.1, Anion Gap 7L, Glomerular Filtration Rate > 60.0, Blood Urea Nitrogen 26#H, Creatinine 0.72, Sodium Level 141, Potassium Level 4.2, Chloride Level 105, Carbon Dioxide Level 29, Calcium Level 8.7, Magnesium Level 2.1 10/02/16 11:32: Bedside Glucose (Misc Panel) 123H CBC/BMP Laboratory Tests 10/02/16 02:40 Red Blood Count 3.72 L, Mean Corpuscular Volume 92.7, Mean Corpuscular Hemoglobin 30.8, Mean Corpuscular Hemoglobin Concent 33.3, Red Cell Distribution Width 15.2 H, Neutrophils (%) (Auto) 81.4 H, Lymphocytes (%) (Auto ) 12.5 L, Monocytes (%) (Auto) 3.9, Eosinophils (%) (Auto) 1.0, Basophils (%) ( Auto) 0.3, Neutrophils # (Auto) 6.2, Lymphocytes # (Auto) 1.0 L, Monocytes # ( Auto) 0.3, Eosinophils # (Auto) 0.1, Basophils # (Auto) 0.0, Calcium Level 8.7 MANISHA SIM Oct 02, 2016 15:04
[2016-10-02 16:00] VITALS: BP 118/61
[2016-10-02 20:00] VITALS: BP 155/78
[2016-10-02] MEDS ORDERED: ATORVASTATIN 20 MG TAB PO SCH (21:00)
--- NOTE | 2016-10-02 21:58 | ECGEPIP ---
Stationary ECG Study [facility] Test Date: 2016-10-02 Pat Name: MARCO ANTONIO SOARES Department: Room: [place] [address] Gender: F Ag Service Manager: BEBETO : 1960 Requested By: TREY GAMING Order Number: [id number] Reading MD: Usman Franklin Measurements Intervals [place] Rate: 96 P: 47 TX: 143 QRS: 4 QRSD: 93 T: 79 QT: 337 QTc: 427 Interpretive Statements SINUS RHYTHM NONSPECIFIC ST & T-WAVE ABNORMALITY Electronically Signed On 10-02-2016 21:57:58 EDT by Usman Franklin
[2016-10-02] MEDS: traZODone 50 MG TAB PO SCH (22:14)
[2016-10-02] MEDS: VENLAFAXINE **XR** 75MG CAPSULE PO SCH (22:15)
[2016-10-02] MEDS: PHENYTOIN ER 30 MG CAP PO SCH (22:15)
[2016-10-02] MEDS: PHENYTOIN ER 100 MG CAP PO SCH (22:15)
[2016-10-03] VITALS (13 sets, daily range): BP systolic 116–140; BP diastolic 58–77; O2SAT 93–99
[2016-10-03] MEDS: MORPHINE 2 MG/ML 1ML SYRINGE IV PRN ×2 (02:46→12:16)
[2016-10-03] MEDS ORDERED: SLF 3 ML SYR IV PRN (04:45)
[2016-10-03 05:23] LABS: BASO % 0.1 % (0.0-1.0); EOS # 0.1 K/mm3 (0.0-0.50); EOS % 1.3 % (0.0-3.0); LARGE UNSTAINED CELL # 0.1 K/mm3 (0.0-0.4); LARGE UNSTAINED CELL % 1.2 % (0.0-4.0); LYMPH # 0.9 K/mm3 (1.5-4.5); LYMPH % 15.9 % (24.0-44.0); MEAN CORPUSCULAR HEMOGLOBIN 30.8 pg (27.0-33.0); MEAN CORPUSCULAR HGB CONC 33.2 g/dl (32.0-36.5); MEAN CORPUSCULAR VOLUME 92.8 fl (80.0-96.0); MONO # 0.3 K/mm3 (0.0-0.8); NEUTROPHILS # 4.5 K/mm3 (1.8-7.7); NEUTROPHILS % 76.5 % (36.0-66.0); PLATELET COUNT, AUTOMATED 235 k/mm3 (150-450); RED CELL DISTRIBUTION WIDTH 15.4 % (11.5-14.5); WHITE BLOOD COUNT 5.9 K/mm3 (4.0-10.0)
[2016-10-03 05:33] LABS: ANION GAP 6 MEQ/L (8-16); BLOOD UREA NITROGEN 33 MG/DL (7-18); CALCIUM LEVEL 8.8 MG/DL (8.5-10.1); CARBON DIOXIDE LEVEL 29 MEQ/L (21-32); CHLORIDE LEVEL 106 MEQ/L (98-107); CREATININE FOR GFR 0.74 MG/DL (0.55-1.02); GLOMERULAR FILTRATION RATE > 60.0 (>51); GLUCOSE, FASTING 128 MG/DL (70-105); POTASSIUM SERUM 4.5 MEQ/L (3.5-5.1); SODIUM LEVEL 141 MEQ/L (136-145)
[2016-10-03] MEDS: hydrALAZINE INJ 20 MG/ML VIAL IV SCH ×3 (05:39→12:00)
[2016-10-03] MEDS: LEVOTHYROXINE 50MCG TABLET (0.05MG) PO SCH (05:48)
[2016-10-03] MEDS: HEPARIN SOD (PORCINE) 5000 UNITS/ML VIAL SC SCH (05:48)
[2016-10-03] MEDS ORDERED: SLF 3 ML SYR IV SCH (06:00)
--- NOTE | 2016-10-03 06:43 | REP ---
CT BRAIN WITHOUT CONTRAST: 10/02/2016. Clinical history: Head trauma after falling down stairs. Findings: No prior studies. Soft tissue and bone windows for each slice level are provided. The ventricles are midline, symmetric and without dilatation or displacement. Third and fourth ventricles unremarkable. Basal ganglia symmetric. The alford-white junction differentiation is maintained. Cortical stripe preserved. There is no vascular territory infarct, intracranial hemorrhage, mass, mass effect or edema. No extra-axial fluid collection. Brainstem and cerebellum show mild cerebellar atrophy but no other significant or acute finding. There is no posterior fossa hemorrhage. Mastoids and visualized sinuses show mucosal thickening covering much of the right maxillary sinus roof. Impression: 1. Some mucosal thickening of the superior aspect of the right maxillary sinus with the other sinuses and mastoids intact. No fracture in skull base or calvarium. 2. No intracranial hemorrhage, acute infarct, edema or mass. Signed by Albert Simon MD 10/03/2016 07:54 A
[2016-10-03] MEDS: HumaLOG INSULIN (NovoLOG) PER UNIT SC SCH ×2 (08:07→12:12)
[2016-10-03] MEDS: SENOKOT S TAB PO SCH ×2 (09:00→09:05)
[2016-10-03] MEDS: NYSTATIN 100,000 UNITS/GM TOPICAL PWD 15 GM TOP SCH (09:00)
[2016-10-03] MEDS: CARVedilol 12.5 MG TAB PO SCH (09:04)
[2016-10-03] MEDS: CILOSTAZOL 100 MG TAB (PLETAL) PO SCH (09:04)
[2016-10-03] MEDS: PREGABALIN 75 MG CAP(LYRICA) PO SCH (09:05)
[2016-10-03] MEDS: OMEPRAZOLE 20 MG CAP PO SCH (09:05)
[2016-10-03] MEDS: LACTOBACILLUS ACIDOPHILUS CAP (BACID) PO SCH (09:05)
[2016-10-03] MEDS: LISINOPRIL 40 MG TAB PO SCH (09:06)
[2016-10-03] MEDS: FAMOTIDINE 20 MG TAB PO SCH (09:07)
[2016-10-03] MEDS: cloNIDine 0.2 MG TAB PO SCH (09:07)
[2016-10-03] MEDS: amLODIPine 10 MG TAB PO SCH (09:07)
[2016-10-03] MEDS: NYSTATIN OINTMENT 15 GM TOP SCH (09:08)
[2016-10-03] MEDS: LIDOCAINE 5% OINT 30 GM TOP SCH (09:08)
[2016-10-03] MEDS: DOXYCYCLINE HYCLATE 100 MG TAB PO SCH (12:12)
[2016-10-03] MEDS ORDERED: ATOR1TAB21 PO (12:35)
[2016-10-03] MEDS ORDERED: DOXY100T2 PO (12:35)
[2016-10-03] MEDS ORDERED: METF500T13 PO (12:56)
--- NOTE | 2016-10-03 13:01 | DS.PDOC ---
Discharge Summary General Date of Admission Oct 01, 2016 at 17:11 Date of Discharge 10/03/2016 Discharge Summary DISCHARGE SUMMARY DATE OF ADMISSION: 10/01/2016 DATE OF DISCHARGE: 10/03/2016 PRIMARY CARE PHYSICIAN: Has appointment to establish care with Dr. Templeton on 10/05 at 9:30 DISCHARGE DIAGNOS(E)S: Noncardiac chest pain Accelerated hypertension Fall Recent diagnosis diabetes mellitus type 2 HPI & HOSPITAL COURSE: 56-year-old female with CAD status post CABG and PCI, chronic diastolic CHF, hypertension, seizure disorder, hypothyroidism, diabetes mellitus type 2, COPD, HANANE, GERD, peripheral neuropathy, migraines, depression, uterine leiomyoma, history of multiple CVAs, recent cellulitis of the abdomen presented to the emergency department with chest pain and accelerated hypertension. The day after admission she reported that in addition to the chest pain, she fell down a flight of stairs and hit her head because the pain was so bad. She does not think she lost consciousness. 1. Chest pain: The patient's troponins have been normal, an EKG as well as a repeat EKG shows no evidence of acute infarct or ischemia. This does not appear to be an episode of ACS. She is, however, new to the area and does not have a scallop binder. She would benefit from being set up for cardiology follow-up at discharge, and we have arranged for her to see Dr. Bermudez at discharge. On the day of discharge, she says the pain is much improved. 2. Fall down stairs: Since the patient reports hitting her head, we checked a CT of her head which was negative for acute findings. She does not think that she passed out. However, she does state that she was a little dizzy. She had an echocardiogram only 2 weeks ago that showed grade 2 diastolic dysfunction, as well as mild tricuspid regurg, trace mitral regurg, and mild aortic regurg. I do not think it's necessary to repeat the echocardiogram at such a short interval. However, we did monitor her on telemetry to rule out any arrhythmias and there were none noted. 3. CAD status post CABG and PCI: The patient is evidently allergic to aspirin, but at home she takes Pletal, which we will continue. She is not on a statin at home. I do recommend that both of these be addressed by her PCP. She is on a beta alec which we'll continue. 4. Accelerated hypertension: There is some question about the patient's compliance. We have resumed her home Norvasc, beta alec, clonidine, and NELIA inhibitor. Her blood pressure is now much improved since being restarted on home meds. 5. Chronic diastolic CHF: The patient currently appears compensated. Her BNP is within normal limits. We will continue her beta alec and NELIA inhibitor. 6. Seizure disorder: Continue home Dilantin. 7. Hypothyroidism: Continue home Synthroid. 8. Diabetes mellitus type 2: Patient is not on any medications at home. This was just diagnosed 2 weeks ago with an A1c of 6.5. I discussed diet modification or the option of metformin with her, she said she would like to try metformin when she goes home. I have also stressed to her that it is still important to change her diet and avoid carbs and other sugars. She expresses understanding of this. We will use sliding scale insulin while the patient is in house, and then plan to start metformin at discharge. 9. COPD: Continue DuoNeb's and Flonase. 10. HANANE: The patient states that she was told to wear 2 L of oxygen at night, but is not on CPAP. When she sees her new PCP, she will likely need to be reevaluated with a sleep study. 11. GERD: Continue home PPI and H2 alec. 12. Peripheral neuropathy: Continue home Lyrica. 13. Depression: Continue home Effexor and trazodone. 14. History of multiple CVAs with resultant right-sided weaknesses: As mentioned above, the patient is evidently allergic to aspirin and is not prescribed a statin at home. We will go ahead and start a statin at this time, she has multiple risk factors which would be more to statin. We will continue blood pressure control. 15. Recent cellulitis of the abdominal wall: The patient evidently never finished the nystatin and doxycycline treatment she was discharged on recently. We have resumed these, and when she goes home she should finish the supply she has at home. DVT prophylaxis: Heparin Dispo: the patient has an appointment arranged with Dr. Templeton on October 05 as a new patient; at that time, he will need to address potentially repeating her sleep study/getting her CPAP, getting her on aspirin or Plavix, and continuing the metformin and statin were started here; she will also need to be referred to a scallop binder PHYSICAL EXAMINATION ON DISCHARGE: VITAL SIGNS: Vital Signs Date Time Temp Pulse Resp B/P (MAP) Pulse Ox O2 Delivery O2 Flow Rate FiO2 10/03/16 12:16 22 Room Air 10/03/16 12:00 122/74 10/03/16 12:00 97.2 78 94 10/03/16 08:00 2.0 General: Awake, alert, no acute distress HEENT: Normocephalic, atraumatic, moist mucous membranes CV: Regular rate and rhythm, no murmurs rubs or gallops Lungs: Clear to auscultation bilaterally Abd: Soft, nontender, nondistended Extremities: No edema Neuro: Alert and oriented 3, normal speech, patient's right side is weak compared to her left side, however, this is chronic in nature, as is her right facial droop Psych: Normal Mood and affect DISPOSITION: Home DISCHARGE INSTRUCTIONS: Keep previously scheduled appointment with Dr. Templeton on October 05 at 9:30 AM. Follow-up with Dr. Bermudez of cardiology. If symptoms return, or if you experience worsening of your symptoms, please call your doctor or return to the emergency department. ITEMS THAT NEED OUTPATIENT FOLLOWUP: When the patient establishes care with Dr. Templeton on October 05, he will need to address potentially repeating her sleep study/getting her CPAP, getting her on aspirin or Plavix, and continuing the metformin and statin were started here Patient was seen and examined by me on the day of discharge, and I spent a total time of greater than 30 minutes on this discharge. Vital Signs/I&Os Vital Signs Date Time Temp Pulse Resp B/P (MAP) Pulse Ox O2 Delivery O2 Flow Rate FiO2 10/03/16 12:16 22 Room Air 10/03/16 12:00 122/74 10/03/16 12:00 97.2 78 94 10/03/16 08:00 2.0 I&O- Last 24 Hours up to 6 AM 10/03/16 06:00 Intake Total 1440 ml Output Total 650 ml Balance 790 ml Laboratory Data Labs 24H Laboratory Tests 2 10/02/16 16:53: Bedside Glucose (Misc Panel) 150H 10/02/16 21:54: Bedside Glucose (Misc Panel) 167H 10/03/16 04:52: White Blood Count 5.9, Red Blood Count 3.83L, Hemoglobin 11.8L, Hematocrit 35.5L , Mean Corpuscular Volume 92.8, Mean Corpuscular Hemoglobin 30.8, Mean Corpuscular Hemoglobin Concent 33.2, Red Cell Distribution Width 15.4H, Platelet Count 235, Neutrophils (%) (Auto) 76.5H, Lymphocytes (%) (Auto) 15.9L, Monocytes (%) (Auto) 5.0, Eosinophils (%) (Auto) 1.3, Basophils (%) (Auto) 0.1, Neutrophils # (Auto) 4.5, Lymphocytes # (Auto) 0.9L, Monocytes # (Auto) 0.3, Eosinophils # (Auto) 0.1, Basophils # (Auto) 0.0, Large Unclassified Cells % 1.2 , Large Unclassified Cells # 0.1, Anion Gap 6L, Glomerular Filtration Rate > 60.0, Blood Urea Nitrogen 33H, Creatinine 0.74, Sodium Level 141, Potassium Level 4.5, Chloride Level 106, Carbon Dioxide Level 29, Calcium Level 8.8, Magnesium Level 2.0 10/03/16 11:33: Bedside Glucose (Misc Panel) 115H CBC/BMP Laboratory Tests 10/03/16 04:52 Red Blood Count 3.83 L, Mean Corpuscular Volume 92.8, Mean Corpuscular Hemoglobin 30.8, Mean Corpuscular Hemoglobin Concent 33.2, Red Cell Distribution Width 15.4 H, Neutrophils (%) (Auto) 76.5 H, Lymphocytes (%) (Auto ) 15.9 L, Monocytes (%) (Auto) 5.0, Eosinophils (%) (Auto) 1.3, Basophils (%) ( Auto) 0.1, Neutrophils # (Auto) 4.5, Lymphocytes # (Auto) 0.9 L, Monocytes # ( Auto) 0.3, Eosinophils # (Auto) 0.1, Basophils # (Auto) 0.0, Calcium Level 8.8 FSBS Laboratory Tests Test 10/02/16 16:53 10/02/16 21:54 10/03/16 11:33 Range/Units Bedside Glucose (Misc Panel) 150 167 115 70-105 MG/DL Discharge Medications Scheduled Amlodipine Besylate (Amlodipine Besylate) 10 Mg Tab, 10 MG PO DAILY, (Reported) Atorvastatin Calcium (Atorvastatin Calcium) 20 Mg Tab, 40 MG PO QHS Carvedilol (Carvedilol) 25 Mg Tab, 25 MG PO BID, (Reported) Cilostazol (Cilostazol) 100 Mg Tab, 100 MG PO BID, (Reported) Clonidine Hydrochloride (Clonidine HCl) 0.2 Mg Tab, 0.2 MG PO BID, (Reported) Doxycycline Hyclate (Doxycycline Hyclate) 100 Mg Tab, 100 MG PO BID Finish the doxycycline you were recently discharged home on. Famotidine (Pepcid) 20 Mg Tab, 20 MG PO BID, (Reported) Levothyroxine Sodium (Levoxyl) 50 Mcg Tab, 50 MCG PO DAILY, (Reported) Lisinopril (Lisinopril) 40 Mg Tab, 40 MG PO DAILY, (Reported) Meloxicam (Meloxicam) 15 Mg Tab, 15 MG PO DAILY, (Reported) Metformin Hydrochloride (Metformin HCl) 500 Mg Tab, 500 MG PO BID Omeprazole (Omeprazole) 40 Mg Cap, 40 MG PO BID, (Reported) Phenytoin (Dilantin) 30 Mg Capcr, 120 MG PO QHS, (Reported) TAKES TOTAL OF 520MG OF DILANTIN QHS Phenytoin Sodium (Dilantin) 100 Mg Cap, 400 MG PO QHS, (Reported) TAKES TOTAL OF 520MG OF DILANTIN QHS Pregabalin (Lyrica) 150 Mg Cap, 150 MG PO BID, (Reported) Trazodone HCl (Trazodone HCl) 150 Mg Tab, 150 MG PO QHS, (Reported) Venlafaxine Hydrochloride (Effexor Xr) 75 Mg Cap, 75 MG PO QHS, (Reported) Scheduled PRN Albuterol Sulfate (Proair Hfa) 108 Mcg/Act Aer, 2 PUFF INH Q4H PRN for SHORTNESS OF BREATH, (Reported) Fluticasone Propionate (Fluticasone Propionate) 50 Mcg/Act Spr, 1 SPRAY NA BID PRN for CONGESTION, (Reported) Nystatin (Nystatin Powder) 100,000 Unit/Gm Pow, 1 DOSE TOP BID PRN for RASH/ ITCHING, (Reported) APPLY UNDER BREASTS AND SKIN FOLDS Allergies Coded Allergies: FISH (Verified Allergy, Severe, HIVES & SWELLING,THROAT CLOSES, 09/16/16) Nitroglycerin (Verified Allergy, Severe, hives, throat swelling, 09/16/16) PEPPERS (Verified Allergy, Severe, GREEN PEPPERS- HIVES,SWELLING,THROAT CLOSES, 09/16/16) Cephalosporins (Verified Allergy, Intermediate, Hives, 09/16/16) Contrast Media (Verified Allergy, Intermediate, hives, 09/16/16) Ibuprofen (Verified Allergy, Intermediate, Hives, 09/16/16) Naproxen (Verified Allergy, Intermediate, hives, 09/16/16) Penicillins (Verified Allergy, Intermediate, hives, 09/16/16) Sulfa Antibiotics (Verified Allergy, Intermediate, hives, 09/16/16) Carbapenems (Verified Allergy, Unknown, 09/16/16) Celecoxib (Verified Allergy, Unknown, 09/16/16) Dapsone (Verified Allergy, Unknown, 09/16/16) Hydrochlorothiazide w/Triamterene (Verified Allergy, Unknown, 09/16/16) NSAIDs (Verified Allergy, Unknown, 09/16/16) Tramadol (Unverified Allergy, Unknown, 10/01/16) Triptans (Verified Allergy, Unknown, 09/16/16) MANISHA SIM Oct 03, 2016 13:01
== END 2016-10-03 15:20 | disposition home or self-care (01) ==
LOC: M ED 10:48 → M ED INP 17:11 → M PCU 18:37
PROVIDERS: ADMIT Internal Medicine; ATTEND Hospitalist
DX: R07.89 Other chest pain (principal); I16.0 Hypertensive urgency; E11.9 Type 2 diabetes mellitus without complications; I25.10 Atherosclerotic heart disease of native coronary artery without angina pectoris; Z95.1 Presence of aortocoronary bypass graft; I50.32 Chronic diastolic (congestive) heart failure; G40.909 Epilepsy, unspecified, not intractable, without status epilepticus; E03.9 Hypothyroidism, unspecified; J44.9 Chronic obstructive pulmonary disease, unspecified; G47.33 Obstructive sleep apnea (adult) (pediatric); K21.9 Gastro-esophageal reflux disease without esophagitis; F32.9 Major depressive disorder, single episode, unspecified; Z86.73 Personal history of transient ischemic attack (TIA), and cerebral infarction without residual deficits; Z91.81 History of falling; Z79.899 Other long term (current) drug therapy
CPT/HCPCS: 36415; 70450; 80048; 80076; 82550; 82553; 83690; 83735; 83835; 83880; 84100; 84443; 84484; 85025; 85379; 93005; 93041; 94760; 96372; 96374; 96375; 96376; 97161; 99285; G0378; G0480; G8978; G8979; G8980; J1940; J3475

== ENCOUNTER 2016-10-08 17:47 | Observation (INO) | payer MEDICARE, MEDICAID ==
[~2016-10-08] VITALS: Ht 154.9 cm; Wt 107.3 kg
[2016-10-08] MEDS: amLODIPine 5 MG TAB PO SCH (09:00)
[~2016-10-08 17:47] MED LIST changes: +AMLO10TA2 PO; +ATOR1TAB21 PO; +DOXY100T2 PO; +METF500T13 PO; +NYST1POW9 TOP
[2016-10-08] MEDS ORDERED: hydrALAZINE INJ 20 MG/ML VIAL IV ONE (18:30)
[2016-10-08 18:59] LABS: BASO % 0.3 % (0.0-1.0); EOS # 0.1 K/mm3 (0.0-0.50); LARGE UNSTAINED CELL # 0.1 K/mm3 (0.0-0.4); LARGE UNSTAINED CELL % 1.1 % (0.0-4.0); LYMPH # 1.5 K/mm3 (1.5-4.5); LYMPH % 22.2 % (24.0-44.0); MEAN CORPUSCULAR HEMOGLOBIN 30.4 pg (27.0-33.0); MEAN CORPUSCULAR HGB CONC 32.6 g/dl (32.0-36.5); MEAN CORPUSCULAR VOLUME 93.3 fl (80.0-96.0); MONO # 0.3 K/mm3 (0.0-0.8); MONO % 4.9 % (0.0-5.0); NEUTROPHILS # 4.3 K/mm3 (1.8-7.7); NEUTROPHILS % 69.5 % (36.0-66.0); PLATELET COUNT, AUTOMATED 235 k/mm3 (150-450); RED CELL DISTRIBUTION WIDTH 15.8 % (11.5-14.5); WHITE BLOOD COUNT 6.2 K/mm3 (4.0-10.0)
[2016-10-08 19:30] LABS: ANION GAP 10 MEQ/L (8-16); BLOOD UREA NITROGEN 15 MG/DL (7-18); CALCIUM LEVEL 9.2 MG/DL (8.5-10.1); CARBON DIOXIDE LEVEL 26 MEQ/L (21-32); CHLORIDE LEVEL 107 MEQ/L (98-107); CREATININE FOR GFR 0.71 MG/DL (0.55-1.02); FREE T4 0.82 NG/DL (0.76-1.46); GLOMERULAR FILTRATION RATE > 60.0 (>51); GLUCOSE, FASTING 137 MG/DL (70-105); MAGNESIUM LEVEL 1.7 MG/DL (1.8-2.4); POTASSIUM SERUM 4.2 MEQ/L (3.5-5.1); SODIUM LEVEL 143 MEQ/L (136-145)
[2016-10-08] MEDS ORDERED: cloNIDine 0.2 MG TAB PO ONE (20:00)
--- NOTE | 2016-10-08 20:00 | REPUSA ---
CLINICAL HISTORY: Syncope. TECHNIQUE: Multiple axial CT images were obtained through brain without IV contrast material. COMMENTS: The study shows normal configuration of sella turcica. There are no intra or extra-axial collections. There is no mass effect or midline shift. There is no evidence of hematoma formation. No hydrocephalus is present. The ventricles are symmetrical. No abnormal calcifications are present. No significant focal abnormalities are seen either in the posterior fossa or supratentorial compartme nt. IMPRESSION: No acute intracranial pathology. Thank you for your kind referral of this patient.
[2016-10-08 20:19] LABS: INR 0.93
[2016-10-08] MEDS ORDERED: LABETALOL HCL 100 MG/20 ML VIAL IV STA (20:25)
[2016-10-08] MEDS ORDERED: GLUCOSE 4 GM CHEW TABLET PO PRN (20:30)
[2016-10-08] MEDS ORDERED: BISACODYL 5 MG TAB PO PRN (20:30)
[2016-10-08] MEDS ORDERED: ONDANSETRON 4MG/2ML VIAL (J2405) IV PRN (20:30)
[2016-10-08] MEDS ORDERED: GLUCAGON FOR INJ 1 MG VIAL (J1610) SC PRN (20:30)
[2016-10-08] MEDS ORDERED: DEXTROSE 50% 50 ML SYRINGE IV PRN (20:30)
[2016-10-08] MEDS ORDERED: ATOR40TA75 PO (20:44)
[2016-10-08] MEDS ORDERED: MAG SULF 1GM/100ML (MAG RUN) 1 GM in APPROPRIATE DILUENT 1 EA IV ONE (21:00)
[2016-10-08] MEDS: NYSTATIN 100,000 UNITS/GM TOPICAL PWD 15 GM TOP SCH (21:00)
[2016-10-08] MEDS: VENLAFAXINE **XR** 75MG CAPSULE PO SCH (21:00)
[2016-10-08] MEDS: HumaLOG INSULIN (NovoLOG) PER UNIT SC SCH (21:00)
[2016-10-08] MEDS: PHENYTOIN ER 100 MG CAP PO SCH (21:15)
[2016-10-08] MEDS: CARVedilol 12.5 MG TAB PO SCH (21:18)
[2016-10-08] MEDS: ATORVASTATIN 20 MG TAB PO SCH (21:18)
[2016-10-08] MEDS: hydrALAZINE INJ 20 MG/ML VIAL IV SCH (21:20)
[2016-10-08] MEDS ORDERED: LEVALBUTEROL 1.25 MG/0.5 ML CONCENTRATE NEB INH PRN (21:45)
[2016-10-08] MEDS ORDERED: LEVALBUTEROL 1.25 MG/0.5 ML CONCENTRATE NEB NEB ONE (22:00)
[2016-10-08] MEDS ORDERED: MORPHINE 2 MG/ML 1ML SYRINGE IV ONE (22:00)
[2016-10-08] MEDS: traZODone 50 MG TAB PO PRN (22:20)
[2016-10-08 22:28] VITALS: BP 160/85
[2016-10-08] MEDS: HEPARIN SOD (PORCINE) 5000 UNITS/ML VIAL SC SCH (22:28)
[2016-10-08] MEDS: PREGABALIN 75 MG CAP(LYRICA) PO SCH (22:59)
[2016-10-08] MEDS ORDERED: FLUTICASONE PROP 0.05% NASAL SPRAY 16 GM (FLONASE) PRN (23:00)
--- NOTE | 2016-10-08 23:00 | REPUSA ---
CLINICAL HISTORY: Near syncope. TECHNIQUE: Duplex ultrasound of the cervical arteries was performed with Doppler spectral analysis an d color flow imaging. CAROTID ARTERIAL DUPLEX ULTRASOUND: Right external carotid artery: 232 cm/s Right internal carotid: 124/23 cm/s (normal less than 125/40) Right common carotid: 135 cm/s Right vertebral: antegrade Right ICA/CCA: 0.9 (normal less than 2) Left external carotid artery: 137 cm/s Left internal carotid: 133/26 cm/s (normal less than 125/40) Left common carotid: 156 cm/s Left vertebral: antegrade Left ICA/CCA: 0.8 (normal less than 2) IMPRESSION: No evidence of hemodynamically significant carotid stenosis bilaterally.
[2016-10-08] MEDS ORDERED: METF500T13 PO (23:27)
[2016-10-08] MEDS ORDERED: NYST1POW9 TOP (23:27)
[2016-10-09] VITALS (22 sets, daily range): BP systolic 128–178; BP diastolic 56–102; O2SAT 90–98
[2016-10-09] MEDS ORDERED: cloNIDine 0.2 MG TAB PO SCH
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
[2016-10-09] MEDS: hydrALAZINE INJ 20 MG/ML VIAL IV SCH ×3 (01:00→09:00)
[2016-10-09] MEDS: ACETAMINOPHEN TAB 650MG DOSE (2X325MG) PO PRN (01:57)
[2016-10-09 05:16] LABS: BASO % 0.3 % (0.0-1.0); EOS # 0.1 K/mm3 (0.0-0.50); EOS % 0.9 % (0.0-3.0); LARGE UNSTAINED CELL # 0.1 K/mm3 (0.0-0.4); LARGE UNSTAINED CELL % 0.9 % (0.0-4.0); LYMPH # 1.6 K/mm3 (1.5-4.5); LYMPH % 23.2 % (24.0-44.0); MEAN CORPUSCULAR HEMOGLOBIN 31.5 pg (27.0-33.0); MEAN CORPUSCULAR HGB CONC 33.5 g/dl (32.0-36.5); MEAN CORPUSCULAR VOLUME 94.2 fl (80.0-96.0); MONO # 0.3 K/mm3 (0.0-0.8); MONO % 4.1 % (0.0-5.0); NEUTROPHILS # 4.7 K/mm3 (1.8-7.7); NEUTROPHILS % 70.5 % (36.0-66.0); PLATELET COUNT, AUTOMATED 255 k/mm3 (150-450); RED CELL DISTRIBUTION WIDTH 15.8 % (11.5-14.5); WHITE BLOOD COUNT 6.7 K/mm3 (4.0-10.0)
[2016-10-09] MEDS: LEVOTHYROXINE 50MCG TABLET (0.05MG) PO SCH (05:43)
[2016-10-09] MEDS: HEPARIN SOD (PORCINE) 5000 UNITS/ML VIAL SC SCH ×3 (05:44→22:11)
[2016-10-09 05:49] LABS: ANION GAP 9 MEQ/L (8-16); BLOOD UREA NITROGEN 18 MG/DL (7-18); CALCIUM LEVEL 8.6 MG/DL (8.5-10.1); CARBON DIOXIDE LEVEL 27 MEQ/L (21-32); CHLORIDE LEVEL 105 MEQ/L (98-107); CHOLESTEROL LEVEL 208 MG/DL (<200); CREATININE FOR GFR 0.65 MG/DL (0.55-1.02); GLOMERULAR FILTRATION RATE > 60.0 (>51); GLUCOSE, FASTING 159 MG/DL (70-105); MAGNESIUM LEVEL 1.8 MG/DL (1.8-2.4); SODIUM LEVEL 141 MEQ/L (136-145); TRIGLYCERIDES LEVEL 198 MG/DL (<150)
[2016-10-09 06:03] LABS: METHADONE URINE NEGATIVE (NEGATIVE)
--- NOTE | 2016-10-09 07:28 | ECGEPIP ---
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
--- NOTE | 2016-10-09 07:33 | REP ---
Portable chest, 07:15 p.m., single AP view, patient sitting: Comparison is 09/29/2016. Sternotomy wires and mediastinal surgical clips are unchanged. The lung colindres are clear. Cardiac size is normal. The jaqueline, mediastinum, and bony thorax are unremarkable. The study is underpenetrated as a consequence of portable technique. Impression: There are no acute cardiopulmonary findings. Signed by Torito Kahn MD 10/09/2016 07:25 A
[2016-10-09] MEDS: CARVedilol 12.5 MG TAB PO SCH ×3 (09:00→20:03)
[2016-10-09] MEDS ORDERED: OMEPRAZOLE 20 MG CAP PO SCH (09:00)
[2016-10-09] MEDS: cloNIDine 0.2 MG TAB PO SCH ×3 (09:00→20:04)
[2016-10-09] MEDS: amLODIPine 5 MG TAB PO SCH ×2 (09:00→12:31)
[2016-10-09] MEDS: NYSTATIN 100,000 UNITS/GM TOPICAL PWD 15 GM TOP SCH ×2 (09:00→20:18)
[2016-10-09] MEDS ORDERED: LISINOPRIL 40 MG TAB PO SCH (09:00)
[2016-10-09] MEDS: HumaLOG INSULIN (NovoLOG) PER UNIT SC SCH ×4 (09:36→21:00)
[2016-10-09] MEDS: PREGABALIN 75 MG CAP(LYRICA) PO SCH ×2 (09:38→20:02)
[2016-10-09] MEDS: FAMOTIDINE 20 MG TAB PO SCH (09:38)
[2016-10-09] MEDS: CILOSTAZOL 100 MG TAB (PLETAL) PO SCH ×2 (09:38→17:14)
[2016-10-09] MEDS: FIORICET TAB PO PRN ×2 (09:41→17:14)
[2016-10-09] MEDS: SUCRALFATE 1 GM TAB PO SCH ×3 (12:28→20:04)
[2016-10-09] MEDS: ATORVASTATIN 20 MG TAB PO SCH (20:02)
[2016-10-09] MEDS: OMEPRAZOLE 20 MG CAP PO SCH (20:03)
[2016-10-09] MEDS: VENLAFAXINE **XR** 75MG CAPSULE PO SCH (20:04)
[2016-10-09] MEDS ORDERED: PHENYTOIN ER 100 MG CAP PO SCH (21:00)
[2016-10-09] MEDS: PHENYTOIN ER 100 MG CAP PO SCH (22:09)
[2016-10-09] MEDS: traZODone 50 MG TAB PO PRN (22:09)
--- NOTE | 2016-10-09 23:57 | ECGEPIP ---
Stationary ECG Study 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
[2016-10-10] VITALS (18 sets, daily range): BP systolic 130–167; BP diastolic 74–95; O2SAT 92–98
[2016-10-10] MEDS: FIORICET TAB PO PRN ×4 (00:17→19:31)
[2016-10-10] MEDS: ACETAMINOPHEN TAB 650MG DOSE (2X325MG) PO PRN (02:39)
[2016-10-10 05:48] LABS: BASO % 0.3 % (0.0-1.0); EOS # 0.1 K/mm3 (0.0-0.50); EOS % 1.9 % (0.0-3.0); LARGE UNSTAINED CELL # 0.1 K/mm3 (0.0-0.4); LARGE UNSTAINED CELL % 1.3 % (0.0-4.0); LYMPH # 1.2 K/mm3 (1.5-4.5); LYMPH % 23.2 % (24.0-44.0); MEAN CORPUSCULAR HGB CONC 33.6 g/dl (32.0-36.5); MEAN CORPUSCULAR VOLUME 92.1 fl (80.0-96.0); MONO # 0.2 K/mm3 (0.0-0.8); MONO % 4.5 % (0.0-5.0); NEUTROPHILS # 3.6 K/mm3 (1.8-7.7); NEUTROPHILS % 68.8 % (36.0-66.0); PLATELET COUNT, AUTOMATED 224 k/mm3 (150-450); RED CELL DISTRIBUTION WIDTH 15.4 % (11.5-14.5); WHITE BLOOD COUNT 5.2 K/mm3 (4.0-10.0)
[2016-10-10] MEDS: LEVOTHYROXINE 50MCG TABLET (0.05MG) PO SCH (05:55)
[2016-10-10] MEDS: HEPARIN SOD (PORCINE) 5000 UNITS/ML VIAL SC SCH ×3 (06:00→22:00)
[2016-10-10 06:20] LABS: ANION GAP 6 MEQ/L (8-16); BLOOD UREA NITROGEN 23 MG/DL (7-18); CALCIUM LEVEL 8.8 MG/DL (8.5-10.1); CARBON DIOXIDE LEVEL 29 MEQ/L (21-32); CHLORIDE LEVEL 106 MEQ/L (98-107); CREATININE FOR GFR 0.65 MG/DL (0.55-1.02); GLOMERULAR FILTRATION RATE > 60.0 (>51); GLUCOSE, FASTING 133 MG/DL (70-105); MAGNESIUM LEVEL 1.6 MG/DL (1.8-2.4); POTASSIUM SERUM 4.2 MEQ/L (3.5-5.1); SODIUM LEVEL 141 MEQ/L (136-145)
[2016-10-10] MEDS: SUCRALFATE 1 GM TAB PO SCH ×4 (08:02→20:25)
[2016-10-10] MEDS: CILOSTAZOL 100 MG TAB (PLETAL) PO SCH ×2 (08:02→17:30)
[2016-10-10] MEDS: NYSTATIN 100,000 UNITS/GM TOPICAL PWD 15 GM TOP SCH ×2 (09:00→20:27)
[2016-10-10] MEDS: HumaLOG INSULIN (NovoLOG) PER UNIT SC SCH ×4 (09:09→21:00)
[2016-10-10] MEDS: FAMOTIDINE 20 MG TAB PO SCH (09:10)
[2016-10-10] MEDS: PREGABALIN 75 MG CAP(LYRICA) PO SCH ×2 (09:11→20:25)
[2016-10-10] MEDS: cloNIDine 0.2 MG TAB PO SCH ×2 (09:11→20:25)
[2016-10-10] MEDS: OMEPRAZOLE 20 MG CAP PO SCH ×2 (09:11→20:24)
[2016-10-10] MEDS: amLODIPine 5 MG TAB PO SCH (09:12)
[2016-10-10] MEDS: CARVedilol 12.5 MG TAB PO SCH ×2 (09:12→20:24)
--- NOTE | 2016-10-10 13:55 | REP ---
MRI BRAIN WITHOUT CONTRAST: HISTORY: Syncope. Hypertensive urgency. COMPARISON: CT study is from October 08, 2016. TECHNIQUE: Axial and sagittal imaging planes are utilized for T1 and T2-weighted scans. Sequences include spin-echo, fast spin echo, FLAIR, and diffusion weighted sequences. MRI FINDINGS: There is a small quantity of fluid and mucosal thickening in the left frontal sinus. A tiny mucous retention cyst is seen in the sphenoid sinus to the right of midline and the right maxillary sinus is largely filled with mucosal thickening and/or fluid. No intraorbital abnormality is appreciated. No bony calvarial lesion is seen. Craniocervical junction and upper cervical cord are normal in appearance. There is no evidence of intracranial hemorrhage. There are mild small vessel changes in the periventricular white matter and subcortical white matter of the supratentorial brain. Diffusion weighted scans show no evidence to suggest acute ischemia. IMPRESSION: Mild mucosal changes in the right maxillary and left frontal and sphenoid sinuses. Small vessel changes. Otherwise negative MRI study of the brain. No acute intracranial lesion. Signed by Tutu Corral MD 10/10/2016 02:12 P
--- NOTE | 2016-10-10 15:50 | IPN ---
DATE: 10/10/2016 SUBJECTIVE: The patient tells me she is feeling better. She is no longer having chest pain. She has not had any syncopal episodes or episodes of passing out or lightheadedness. She denies chest pain, fever, chills, nausea, vomiting or diarrhea. OBJECTIVE: VITAL SIGNS: Temperature 97.2, pulse 87, respiratory rate 20, blood pressure 157/95, 02 saturation 93% on room air. GENERAL: She is an obese female lying flat in bed. She does not appear to be in any acute distress. HEENT: Cranial nerves II through XII are grossly intact. She has moist mucous membranes. Not able to assess for elevation and central venous pressure (CVP) secondary to large neck. CARDIOVASCULAR: S1, S2, regular. RESPIRATORY: Fairly clear, but distant secondary to body habitus. ABDOMEN: Grossly obese. EXTREMITIES: No clubbing, cyanosis or edema. LABORATORY STUDIES: WBC 5.2, hemoglobin 11.8, hematocrit 35.2, platelet count 224. Chemistry panel: Sodium 141, potassium 4.2. Chloride 106, bicarbonate 29, BUN 26, creatinine 0.6. Hemoglobin A1c is 7.4, repleted. Three sets of cardiac enzymes are negative. TSH was within normal limits. Urinalysis: Unremarkable. Urine toxicology is negative. IMAGING: The patient had MRI of the brain that revealed small vessel changes, negative MRI. No acute intracranial lesion. She did have a duplex ultrasound that revealed no hemodynamically significant carotid stenosis. She had a chest x-ray that revealed no acute cardiopulmonary findings. Head CT revealed no acute intracranial pathology. She has been telemetry without any significant events. ASSESSMENT AND PLAN: This is a 56-year-old female who presented with hypertensive urgency and syncope. PROBLEM LIST: 1. Hypertensive urgency and syncope. The patient had a similar presentation very recently. I suspect the most likely scenario is medical noncompliance. She insists that she takes all her medications, however, she presented to the hospital with systolic in the 220s and simply being provided with her own home medications, her blood pressure is fairly well controlled at this time. I have encouraged her to seek the help of her niece who she lives with in setting up a pill box for her. All of her symptoms have resolved with controlling of her blood pressure. 2. Syncope. The patient has a history of seizure disorder. An EEG has been ordered. She is on antiepileptics. Does not sound as though these episodes were seizure disorder in nature. 3. Essential hypertension. Secondary causes could be evaluated, however, at this time renal Doppler does not seem indicated. What is more likely is a diagnosis of obstructive sleep apnea. I think she would benefit from outpatient polysomnography testing as well as diet and exercise. 4. Morbid obesity complicating care. 5. Gastroesophageal reflux disease. She is on Prilosec. We have added Carafate. She is also on Pepcid. 6. Migraines. She is on Fioricet. 7. Type 2 diabetes. She is on sliding scale in hospital. It is recommended that she start metformin upon discharge. 8. Hypothyroidism. She on Synthroid. 9. Seizure disorder. Continue with Dilantin, her home medication. 10. Chronic pain. She is on Lyrica and this is also antianalytic property. 11. Depression. She is continued on Effexor. She is not acutely suicidal. She has longstanding depression and what appears to sound like some post-traumatic stress disorder (PTSD). She should continue following up with her outpatient psychiatrist. I do not see any indication for inpatient consultation at this time. Continue with trazodone at bedtime as well. 12. Coronary artery disease. The patient has a history of myocardial infarction ([place]). She is on a beta alec. She is on a statin. She is not on aspirin. Consider initiating upon discharge. 13. Deep venous thrombosis (DVT) prophylaxis. The patient is on heparin. DISPOSITION: Pending EEG results. The patient has been cleared with physical therapy and I expect she will be able to be discharged within the next 24 hours.
[2016-10-10] MEDS ORDERED: MAG SULF 1GM/100ML (MAG RUN) 1 GM in APPROPRIATE DILUENT 1 EA IV ONE (16:00)
[2016-10-10] MEDS: ATORVASTATIN 20 MG TAB PO SCH (20:24)
[2016-10-10] MEDS: VENLAFAXINE **XR** 75MG CAPSULE PO SCH (20:24)
[2016-10-10] MEDS: traZODone 50 MG TAB PO PRN (21:59)
[2016-10-10] MEDS: PHENYTOIN ER 100 MG CAP PO SCH (21:59)
--- NOTE | 2016-10-10 22:54 | EEG ---
DATE OF PROCEDURE: 10/10/2016 REFERRING PHYSICIAN: Blanca Pierre MD DIAGNOSIS: Syncope versus seizure. EE 234 HISTORY: The patient is a 56-year-old woman who was admitted at [facility] due to chest pain and passing-out spells. The patient has history of grand mal seizures since childhood. She is currently taking phenytoin, carvedilol, amlodipine, Pepcid, Lyrica, clonidine, Prilosec, levothyroxine, etc. TECHNICAL DESCRIPTION: This digital EEG was recorded by 21 scalp, ear and two EKG electrodes and was reviewed in bipolar and referential montages following reformatting in 10-20 international electrode placement system. INTERPRETATION: The patient was noted to be in awake and drowsy states during this EEG. Resting awake background rhythm consisted of 8 - 9 Hz alpha activity measuring 15 - 30 microvolts in amplitude, which was symmetric and reactive to eye opening. Attenuation of posterior dominant rhythm was seen during transition into drowsiness. Stage I and II sleep were recorded and were symmetric bilaterally. Hyperventilation could not be performed. Photic stimulation remained unremarkable. EKG revealed normal sinus rhythm. No focal, lateralizing or epileptiform abnormalities were seen. No clinical or electrographic seizures were recorded. CONCLUSION: This EEG in awake, drowsy states, stage I and II sleep is within normal limits.
--- NOTE | 2016-10-10 23:02 | IPNPDOC ---
Text Note Date of Service The patient was seen on 10/10/16. NOTE Nurse called evening resident and attending that patient fell and hit her head in the bathroom. She was evaluated immediately at the bedside. Patient stated she hit her left forehead while she was getting out of toliet trying to get to her bed. She stated got got dizzy and everything blacked out and she hit her head on the side. Nurse found her out in the bathroom after she hit the emergency button. Patient also complaint of slurred speech currently and however not obvious neurological deficit on examination. Will order a stat CT head without contrast to evaluate her. Differential also include malingering however. Patient has been discussed with Dr. Huff. VS,Som, I+O VS, Som, I+O Laboratory Tests 10/10/16 04:37 Red Blood Count 3.82 L, Mean Corpuscular Volume 92.1, Mean Corpuscular Hemoglobin 31.0, Mean Corpuscular Hemoglobin Concent 33.6, Red Cell Distribution Width 15.4 H, Neutrophils (%) (Auto) 68.8 H, Lymphocytes (%) (Auto ) 23.2 L, Monocytes (%) (Auto) 4.5, Eosinophils (%) (Auto) 1.9, Basophils (%) ( Auto) 0.3, Neutrophils # (Auto) 3.6, Lymphocytes # (Auto) 1.2 L, Monocytes # ( Auto) 0.2, Eosinophils # (Auto) 0.1, Basophils # (Auto) 0.0, Calcium Level 8.8 Vital Signs Date Time Temp Pulse Resp B/P (MAP) Pulse Ox O2 Delivery O2 Flow Rate FiO2 10/10/16 20:24 105 165/79 10/10/16 20:04 97.5 20 96 Room Air 10/09/16 07:00 2.0 I&O- Last 24 Hours up to 6 AM 10/10/16 05:59 Intake Total 1680 ml Output Total 1000 ml Balance 680 ml GME ATTESTATION GME ATTESTATION My preceptor for this patient encounter was physically present in the building during the encounter and was fully available. As needed, all aspects of the patient interview, examination, medical decision making process, and medical care plan development were reviewed and approved by the preceptor. Preceptor is aware and concurs with the plan as stated in the body of this note and will attest to such by his/her cosignature. TREY GAMING DO Oct 10, 2016 23:02
[2016-10-11] VITALS (10 sets, daily range): BP systolic 115–178; BP diastolic 79–105; O2SAT 93–96
[2016-10-11] MEDS: FIORICET TAB PO PRN ×3 (02:34→18:02)
[2016-10-11] MEDS: LEVOTHYROXINE 50MCG TABLET (0.05MG) PO SCH (05:54)
[2016-10-11] MEDS: HEPARIN SOD (PORCINE) 5000 UNITS/ML VIAL SC SCH ×3 (05:54→22:00)
[2016-10-11 06:18] LABS: BASO % 0.1 % (0.0-1.0); EOS # 0.1 K/mm3 (0.0-0.50); EOS % 1.7 % (0.0-3.0); LARGE UNSTAINED CELL # 0.1 K/mm3 (0.0-0.4); LARGE UNSTAINED CELL % 1.5 % (0.0-4.0); LYMPH # 1.3 K/mm3 (1.5-4.5); MEAN CORPUSCULAR HEMOGLOBIN 31.3 pg (27.0-33.0); MEAN CORPUSCULAR HGB CONC 33.8 g/dl (32.0-36.5); MEAN CORPUSCULAR VOLUME 92.8 fl (80.0-96.0); MONO # 0.2 K/mm3 (0.0-0.8); MONO % 3.3 % (0.0-5.0); NEUTROPHILS # 3.6 K/mm3 (1.8-7.7); NEUTROPHILS % 69.4 % (36.0-66.0); PLATELET COUNT, AUTOMATED 241 k/mm3 (150-450); RED CELL DISTRIBUTION WIDTH 15.6 % (11.5-14.5); WHITE BLOOD COUNT 5.2 K/mm3 (4.0-10.0)
[2016-10-11 06:19] LABS: ANION GAP 6 MEQ/L (8-16); BLOOD UREA NITROGEN 21 MG/DL (7-18); CALCIUM LEVEL 8.6 MG/DL (8.5-10.1); CARBON DIOXIDE LEVEL 30 MEQ/L (21-32); CHLORIDE LEVEL 105 MEQ/L (98-107); CREATININE FOR GFR 0.63 MG/DL (0.55-1.02); GLOMERULAR FILTRATION RATE > 60.0 (>51); GLUCOSE, FASTING 138 MG/DL (70-105); MAGNESIUM LEVEL 1.8 MG/DL (1.8-2.4); POTASSIUM SERUM 4.5 MEQ/L (3.5-5.1); SODIUM LEVEL 141 MEQ/L (136-145)
[2016-10-11] MEDS: HumaLOG INSULIN (NovoLOG) PER UNIT SC SCH ×4 (08:27→21:00)
[2016-10-11] MEDS: cloNIDine 0.2 MG TAB PO SCH ×3 (08:28→21:35)
[2016-10-11] MEDS: CARVedilol 12.5 MG TAB PO SCH ×2 (08:28→21:34)
[2016-10-11] MEDS: CILOSTAZOL 100 MG TAB (PLETAL) PO SCH ×2 (08:28→18:02)
[2016-10-11] MEDS: amLODIPine 5 MG TAB PO SCH (08:28)
[2016-10-11] MEDS: NYSTATIN 100,000 UNITS/GM TOPICAL PWD 15 GM TOP SCH ×2 (08:29→21:00)
[2016-10-11] MEDS: SUCRALFATE 1 GM TAB PO SCH ×4 (08:29→21:48)
[2016-10-11] MEDS: OMEPRAZOLE 20 MG CAP PO SCH ×2 (08:29→21:33)
[2016-10-11] MEDS: FAMOTIDINE 20 MG TAB PO SCH (08:29)
[2016-10-11] MEDS: PREGABALIN 75 MG CAP(LYRICA) PO SCH ×2 (08:29→21:34)
[2016-10-11] MEDS ORDERED: CATA0.2T PO (09:46)
--- NOTE | 2016-10-11 15:16 | IPN ---
DATE: 10/11/2016 A 56-year-old female seen at bedside. Apparently, she had a mechanical fall during the night last night. There is some question whether or not she had had some head trauma. Nonetheless, her head CT was negative. She has not shown any sequelae and she denies headache, lightheaded, dizziness, and did not have any visible areas on her scalp where she had hit her head through the night. At any rate, we did have a discussion about her possibly going home today if her blood pressure was under better control. She informed me that she did not feel comfortable with that plan, although she has passed a home safety evaluation with physical therapy OBJECTIVE: VITAL SIGNS: Temperature is 96.6, pulse 83, respiratory rate is 20, blood pressure 156/93, SPO2 is 95% on room air. GENERAL: The patient appears to be in no acute distress, alert and oriented. HEENT: Unremarkable. LUNGS: Clear. HEART: Regular rate and rhythm. ABDOMEN: Soft, nontender, nondistended. Positive bowel sounds. No masses. No rebound. EXTREMITIES: No edema. No calf tenderness. She does not show any abnormalities on telemetry. LABORATORY DATA: White count is 5.2, hemoglobin 12.0, and platelets are 48,000. Sodium 141, potassium 4.5, chloride 105, bicarbonate 30, anion gap 6, BUN is 21, creatinine 0.63, glucose is 138, magnesium 1.8. ASSESSMENT AND PLAN: 1. Hypertensive urgency with syncope. She did have a fall through the night last night that sounds like it was more mechanical in nature. She stated that she did have another fall this morning that was unwitnessed. However, she does not have any trauma and she was assisted back into bed. Physical therapy did reevaluate her. They felt that she did not demonstrate any nystagmus. She did not show any signs of any disequilibrium and her orthostatics were unremarkable. Again, her blood pressure does appear to be under better control otherwise and her telemetry is unremarkable. 2. Syncope, history of seizure disorder. EEG had been ordered. Results are unremarkable for any seizure or epileptic activity. At any rate, she does not demonstrate any significant findings at this time. We will have physical therapy work with her another 24 hours and see if we can get her discharged to home. She may need some balance reconditioning. 3. Morbid obesity with body mass index (BMI) of 44.7. This does complicate her medical care. Perhaps, this does affect her core balance. Again, we will encourage for her to lose weight. 4. Essential hypertension with likely medical noncompliance. She does appear to be doing better with the current regimen. 5. Obstructive sleep apnea. Followup outpatient. 6. Gastroesophageal reflux disease (GERD). Stable on Carafate and Pepcid. 7. Depression. Currently on Prilosec. 8. History of migraines. History use of using Fioricet. 9. Diabetes. Continue sliding scale coverage. Resume metformin on discharge. 10. Hypothyroidism. Continue Synthroid. 11. Seizure disorder. Continue on Dilantin. No new findings on EEG. 12. Chronic pain. Continue on Lyrica. 13. Depression with underlying history of posttraumatic stress disorder (PTSD). Continue on Effexor, Prilosec, and followup with outpatient psychiatrist. 14. Coronary artery disease with prior history of myocardial infarction (DC). She is currently on a beta alec and statin. She is not on aspirin. We may want to start her on this on discharge. 15. Deep vein thrombosis (DVT) prophylaxis, subcutaneous heparin. DISPOSITION: Anticipate home discharge tomorrow.
[2016-10-11] MEDS: VENLAFAXINE **XR** 75MG CAPSULE PO SCH (21:31)
[2016-10-11] MEDS: PHENYTOIN ER 100 MG CAP PO SCH (21:32)
[2016-10-11] MEDS: ATORVASTATIN 20 MG TAB PO SCH (21:32)
[2016-10-11] MEDS: traZODone 50 MG TAB PO PRN (21:48)
[2016-10-12] VITALS: BP 174/93
[2016-10-12] MEDS: FIORICET TAB PO PRN ×2 (00:50→09:11)
[2016-10-12] MEDS: HEPARIN SOD (PORCINE) 5000 UNITS/ML VIAL SC SCH (06:13)
[2016-10-12] MEDS: LEVOTHYROXINE 50MCG TABLET (0.05MG) PO SCH (06:14)
[2016-10-12 07:14] LABS: BASO % 0.1 % (0.0-1.0); EOS # 0.1 K/mm3 (0.0-0.50); LARGE UNSTAINED CELL # 0.1 K/mm3 (0.0-0.4); LARGE UNSTAINED CELL % 0.9 % (0.0-4.0); LYMPH # 1.3 K/mm3 (1.5-4.5); LYMPH % 24.7 % (24.0-44.0); MEAN CORPUSCULAR HEMOGLOBIN 30.8 pg (27.0-33.0); MEAN CORPUSCULAR HGB CONC 33.4 g/dl (32.0-36.5); MEAN CORPUSCULAR VOLUME 92.3 fl (80.0-96.0); MONO # 0.2 K/mm3 (0.0-0.8); MONO % 4.1 % (0.0-5.0); NEUTROPHILS # 3.5 K/mm3 (1.8-7.7); NEUTROPHILS % 68.2 % (36.0-66.0); PLATELET COUNT, AUTOMATED 235 k/mm3 (150-450); WHITE BLOOD COUNT 5.1 K/mm3 (4.0-10.0)
[2016-10-12] MEDS: CILOSTAZOL 100 MG TAB (PLETAL) PO SCH (07:18)
[2016-10-12] MEDS: SUCRALFATE 1 GM TAB PO SCH (07:18)
[2016-10-12 07:20] LABS: ANION GAP 2 MEQ/L (8-16); BLOOD UREA NITROGEN 22 MG/DL (7-18); CALCIUM LEVEL 9.1 MG/DL (8.5-10.1); CARBON DIOXIDE LEVEL 33 MEQ/L (21-32); CHLORIDE LEVEL 105 MEQ/L (98-107); CREATININE FOR GFR 0.67 MG/DL (0.55-1.02); GLOMERULAR FILTRATION RATE > 60.0 (>51); GLUCOSE, FASTING 140 MG/DL (70-105); MAGNESIUM LEVEL 1.6 MG/DL (1.8-2.4); POTASSIUM SERUM 4.3 MEQ/L (3.5-5.1); SODIUM LEVEL 140 MEQ/L (136-145)
[2016-10-12 08:00] VITALS: BP 158/81
[2016-10-12] MEDS: CARVedilol 12.5 MG TAB PO SCH (08:19)
[2016-10-12] MEDS: HumaLOG INSULIN (NovoLOG) PER UNIT SC SCH (08:19)
[2016-10-12] MEDS: OMEPRAZOLE 20 MG CAP PO SCH (08:19)
[2016-10-12] MEDS: cloNIDine 0.2 MG TAB PO SCH (08:20)
[2016-10-12] MEDS: FAMOTIDINE 20 MG TAB PO SCH (08:20)
[2016-10-12] MEDS: PREGABALIN 75 MG CAP(LYRICA) PO SCH (08:20)
[2016-10-12 08:21] VITALS: BP 158/81
[2016-10-12] MEDS ORDERED: amLODIPine 10 MG TAB PO SCH (09:00)
--- NOTE | 2016-10-12 13:43 | DSES ---
DATE OF ADMISSION: 10/08/2016 DATE OF DISCHARGE: 10/12/2016 PRIMARY CARE PROVIDER: [facility] CONSULTATIONS: None. PROCEDURES: None. COMPLICATIONS: None. ADMISSION/DISCHARGE DIAGNOSES: 1. Hypertensive urgency, syncope and history of medical noncompliance. 2. Mechanical fall while in the hospital with negative head CT with the patient having subjective complaints of dysequilibrium. 3. History of seizure disorder. 4. Morbid obesity which complicates medical care. 5. Obstructive sleep apnea. 6. Gastroesophageal reflux disease. 7. Depression. 8. Migraines. 9. Diabetes. 10. Hypothyroidism. 11. Chronic pain 12. Coronary artery disease status post myocardial infarction ([place]). BRIEF HOSPITAL COURSE: Ms. Escamilla is a 56-year-old female who follows with the [facility] who presented to the emergency department with chest pain, "passing out" and had a mechanical fall while admitted to the telemetry floor. She does have underlying history of chronic obstructive pulmonary disease (COPD) , asthma, obstructive sleep apnea, gastroesophageal reflux disease (GERD), hiatal hernia, diabetes, coronary artery disease, hypertension for which she is known to be noncompliant, hypothyroidism, obstructive sleep apnea noncompliant with C-PAP , migraines and depression who has had multiple episodes of "passing out" over the past few days which was apparently witnessed by her niece. Her workup through the emergency department and while admitted demonstrated a negative head CT. Ultrasound of the carotid arteries showed no evidence of hemodynamically significant carotid stenosis bilaterally. She did have a mechanical fall while in the hospital. Her repeat head CT showed no acute intracranial pathology. MRI of the brain with mild changes in the right maxillary and frontal sphenoid sinus , otherwise negative MRI. She has no complaints of any sinusitis. EKG was unremarkable. Telemetry did not reveal any abnormalities. Physical therapy did evaluate her and felt that the patient was appropriate for home discharge. On day of discharge, she did appear to be back to baseline. Her vital signs were stable. Labs unremarkable. Physical examination did not reveal anything focal. DISCHARGE CONDITION: Good. DISPOSITION: Discharge to home. DISCHARGE MEDICATIONS: - clonidine had been adjusted to 0.2 mg three times a day - metformin 500 mg twice a day - Nystatin powder as directed - albuterol inhaler as directed - Norvasc 10 mg daily - Lipitor 40 mg at bedtime - carvedilol 25 mg twice a day - cilostazol 100 mg twice a day - Pepcid 20 mg twice a day - fluticasone nasal spray 1 spray each nostril twice a day - Synthroid 50 mcg daily - lisinopril 40 mg daily - omeprazole 40 mg twice a day - phenytoin 120 mg at bedtime - Lyrica 150 mg twice a day - trazodone 150 mg at bedtime - Effexor XR 75 mg at bedtime DISCHARGE INSTRUCTIONS: Discharge to home. Activity as tolerated. Consistent carb diet. Follow up with primary care provider in a week. Should she continue to have episodes, she may need to be referred to cardiology for an event loop recorder. Should symptoms worsen, she is advised to seek medical attention. In the meantime, due to her subjected disequilibrium, we will try to place a public health referral for in-home physical therapy. The discharge took approximately 35 minutes. HENRIK
== END 2016-10-12 10:30 | disposition home or self-care (01) ==
LOC: M ED 17:47 → M ED INP 20:21 → M PCU 22:05 → M PED 10-11 16:14
PROVIDERS: ADMIT General Practice; ATTEND Internal Medicine
DX: I16.0 Hypertensive urgency (principal); Z91.81 History of falling; E66.01 Morbid (severe) obesity due to excess calories; G47.33 Obstructive sleep apnea (adult) (pediatric); K21.9 Gastro-esophageal reflux disease without esophagitis; E11.9 Type 2 diabetes mellitus without complications; F32.9 Major depressive disorder, single episode, unspecified; E03.9 Hypothyroidism, unspecified; G89.29 Other chronic pain; G40.909 Epilepsy, unspecified, not intractable, without status epilepticus; I25.10 Atherosclerotic heart disease of native coronary artery without angina pectoris; I25.2 Old myocardial infarction; J44.9 Chronic obstructive pulmonary disease, unspecified; K44.9 Diaphragmatic hernia without obstruction or gangrene; Z98.61 Coronary angioplasty status; Z88.0 Allergy status to penicillin; Z88.2 Allergy status to sulfonamides; Z88.8 Allergy status to other drugs, medicaments and biological substances; Z91.041 Radiographic dye allergy status; Z91.013 Allergy to seafood
CPT/HCPCS: 36415; 70450; 70551; 71010; 80048; 80061; 80185; 80307; 81001; 82550; 82553; 83036; 83605; 83735; 84439; 84443; 84484; 85025; 85610; 85730; 93005; 93041; 93880; 94760; 95819; 96372; 96374; 96375; 97161; 97164; 99285; G0378; G8978; G8979; G8980; J3475